=== PATIENT | female | born 1990 | race Caucasian/White ===

== ENCOUNTER → 2020-03-12 08:35 | Outpatient (BNVA) | payer MEDICAID, SELFPAY | PROVIDERS: Visit Provider Nurse Practitioner | DX: K21.9 Gastro-esophageal reflux disease without esophagitis (principal); A04.8 Other specified bacterial intestinal infections; K58.0 Irritable bowel syndrome with diarrhea | CPT/HCPCS: 99214 ==

== ENCOUNTER → 2020-04-29 10:27 | Outpatient (BNVA) | payer MEDICAID, SELFPAY | PROVIDERS: Visit Provider Nurse Practitioner | DX: Z76.89 Persons encountering health services in other specified circumstances (principal) ==

== ENCOUNTER → 2020-05-27 10:53 | Outpatient (BNVA) | payer MEDICAID, SELFPAY | PROVIDERS: PCP Nurse Practitioner Primary Care; Visit Provider Nurse Practitioner | DX: Z76.89 Persons encountering health services in other specified circumstances (principal) ==

== ENCOUNTER → 2020-09-02 10:44 | Outpatient (BNVA) | payer MEDICAID, SELFPAY | PROVIDERS: PCP Nurse Practitioner Primary Care; Visit Provider Nurse Practitioner ==

== ENCOUNTER 2021-03-10 11:04 | Outpatient (REF) | payer MEDICAID, SELFPAY ==
[2021-03-11 09:44] LABS: H Pylori Breath Test Negative (Negative)
== END 2021-03-10 11:05 | disposition home or self-care (01) ==
LOC: CF 11:04
PROVIDERS: Visit Provider Nurse Practitioner
DX: K21.9 Gastro-esophageal reflux disease without esophagitis (principal); K58.0 Irritable bowel syndrome with diarrhea; A04.8 Other specified bacterial intestinal infections; Z88.8 Allergy status to other drugs, medicaments and biological substances; Z88.6 Allergy status to analgesic agent
CPT/HCPCS: 36415; 83013; 99212

== ENCOUNTER 2022-02-28 08:08 | Emergency (ER) | payer MEDICAID, SELFPAY ==
--- NOTE | ~2022-02-28 | US_ITS ---
EXAMINATION: US PELVIS CLINICAL INFORMATION: Right pelvic/right lower quadrant pain. COMPARISON: CT scan of the abdomen and pelvis dated 11/10/2015. TECHNIQUE: Ultrasound of the pelvis is performed using both transabdominal and transvaginal transducers along with Doppler. Transvaginal imaging is performed due to inadequate visualization transabdominally. FINDINGS: Uterus: Anteverted/anteflexed on transabdominal images, but changed to retroverted on transvaginal images and measures 8.6 x 3.9 x 4.5 cm. Mild heterogeneity is seen in the myometrium. A small anechoic cyst is seen in the myometrium at the fundus measuring 0.5 x 0.3 x 0.5 cm. The endometrial stripe measures up to 1.5 cm. The endometrial stripe is mildly hypoechoic centrally at the level the fundus. Color Doppler showed no abnormal vascular flow. No free fluid in the cul-de-sac. Right ovary measures 3.7 x 3.2 x 2.4 cm. Volume of 14.9 mL. An anechoic follicles measure 1.0 cm and 1.3 cm. A probable small hemorrhagic follicle measures 1.8 cm. Doppler showed no abnormal vascular flow. Left ovary measures 2.9 x 2.6 x 2.0 cm. Volume of 7.9 mL. Several anechoic follicles measuring up to 0.9 cm. Trace adjacent anechoic fluid. Doppler showed no abnormal vascular flow. US/US pelvic and transvaginal IMPRESSION: 1. Retroverted/retroflexed uterus on transvaginal images correlates with previous CT findings. Mild myometrial heterogeneity without definitive fibroid. Hypoechoic component of the endometrial stripe could represent products of menstruation without other significant abnormality. If the patient experiences abnormal bleeding this could be monitored for change with a repeat transvaginal ultrasound and 3 months. 2. No significant adnexal abnormality.
--- NOTE | ~2022-02-28 | US_ITS ---
EXAMINATION: US PELVIS CLINICAL INFORMATION: Right pelvic/right lower quadrant pain. COMPARISON: CT scan of the abdomen and pelvis dated 11/10/2015. TECHNIQUE: Ultrasound of the pelvis is performed using both transabdominal and transvaginal transducers along with Doppler. Transvaginal imaging is performed due to inadequate visualization transabdominally. FINDINGS: Uterus: Anteverted/anteflexed on transabdominal images, but changed to retroverted on transvaginal images and measures 8.6 x 3.9 x 4.5 cm. Mild heterogeneity is seen in the myometrium. A small anechoic cyst is seen in the myometrium at the fundus measuring 0.5 x 0.3 x 0.5 cm. The endometrial stripe measures up to 1.5 cm. The endometrial stripe is mildly hypoechoic centrally at the level the fundus. Color Doppler showed no abnormal vascular flow. No free fluid in the cul-de-sac. Right ovary measures 3.7 x 3.2 x 2.4 cm. Volume of 14.9 mL. An anechoic follicles measure 1.0 cm and 1.3 cm. A probable small hemorrhagic follicle measures 1.8 cm. Doppler showed no abnormal vascular flow. Left ovary measures 2.9 x 2.6 x 2.0 cm. Volume of 7.9 mL. Several anechoic follicles measuring up to 0.9 cm. Trace adjacent anechoic fluid. Doppler showed no abnormal vascular flow. US/US pelvic ovarian doppler IMPRESSION: 1. Retroverted/retroflexed uterus on transvaginal images correlates with previous CT findings. Mild myometrial heterogeneity without definitive fibroid. Hypoechoic component of the endometrial stripe could represent products of menstruation without other significant abnormality. If the patient experiences abnormal bleeding this could be monitored for change with a repeat transvaginal ultrasound and 3 months. 2. No significant adnexal abnormality.
[2022-02-28 08:14] VITALS: BP 114/63; PULSE 83; RESP 18; TEMP 36.4; O2SAT 100; BMI 29.9
--- NOTE | 2022-02-28 08:42 | ED_ITS ---
HPI - Abdominal Pain General Chief Complaint: Abdominal Pain Stated Complaint: Pain in R side abd Time Seen by Provider: 02/28/22 08:42 Source: patient, family and old records reviewed Mode of arrival: ambulatory Limitations: no limitations History of Present Illness HPI narrative: 32 yo female with hx of IBS, GERD, anxiety depression and cyclical vomiting here with c/o 4 days of n/v and abdominal pain states this is typical of her cyclical vomiting bouts. At this time no change in medications. Zofran did not work. MD elicited complaint: abdominal pain (n/v) Pertinent past history: none Onset (ago): day(s) (4) Pain Consistency: constant Location: diffuse Severity: moderate Quality: stabbing Radiation: none Migration to: no migration Exacerbating factors: eating Relieving factors: nothing Context: history of similar episodes Associated symptoms: nausea and vomiting Treatments prior to arrival: other (zofran) Related Data Home Medications Medication Instructions Recorded Confirmed ferrous sulfate 325 mg (65 mg 325 mg PO DAILY 09/02/20 iron) tablet Previous Rx's Medication Instructions Recorded dicyclomine 20 mg tablet 20 mg PO QID 30 days #120 tabs 03/12/20 omeprazole 40 mg capsule,delayed 40 mg PO DAILY 30 days #30 caps 03/10/21 release Allergies Allergy/AdvReac Type Severity Reaction Status Date / Time promethazine [From PHENERGAN] Allergy Unknown RASH Verified 03/10/21 11:11 ENTIRE BODY tramadol [TRAMADOL] Allergy Unknown Rash Verified 03/10/21 11:11 Review of Systems Review of Systems Constitutional : No Weight loss, No Fever, No Chills ENT/Mouth : No sore throat, No Rhinorrhea Eyes: No Swelling, No Redness Cardiovascular : No Chest Pain, No SOB, No Edema Respiratory : No Cough, No Sputum, No Wheezing Gastrointestinal : Positive Nausea, Positive Vomiting, no Diarrhea, positive abdominal Pain, No Hematochezia, No Melena Genitourinary : No Dysuria, No Urinary Frequency, No Hematuria, No Urgency Musculoskeletal : No joint pain, No Myalgias, No Joint Swelling Skin : No Skin Lesions, No rash Neuro : No Weakness, No Numbness, No Dizziness, No Headache Psych : No Anxiety/Panic, No Depression Heme/Lymph: No Bruising, No Lymphadenopathy Endocrine : No Polyuria, No Polydipsia All other systems reviewed and are negative. [facility] [place] Past Medical History Attestation statement: The following information was validated with the patient. Medical History IBS (irritable bowel syndrome) Surgical History Hx of eye surgery Hx of tubal ligation Family History Family History Maternal Grandfather No problems noted. Maternal Grandmother Ulcer Family/Other Stomach cancer Breast cancer Mother Asthma Social History Social History (Updated 02/28/22 @ 08:49 by Yuliana Shaw DO) Household Members: Significant Other and Children Housing: Apartment Alcohol intake: current Alcohol intake frequency: does not drink Patient Tobacco Use Status: Never used Tobacco Physical Exam ED Vital Signs: Vital Signs - 24 hr 02/28/22 08:14 Temperature 97.6 F Pulse Rate 83 Respiratory Rate 18 Blood Pressure 114/63 Pulse Oximetry 100 Oxygen Delivery Method Room Air BMI result Body Mass Index 29.9 Appearance: Alert. Oriented X3. anxious, moving around on stretcher mild acute distress. Eyes: Pupils equal, round and reactive to light. ENT: Pharynx dry MM mild Neck: Normal inspection. Neck supple. CVS: Normal heart rate and rhythm. Pulses normal. Respiratory: No respiratory distress. Breath sounds normal. Abdomen: Soft and mild diffuse ttp no rebound or guarding Skin: Skin warm and dry. pale skin color. Normal skin turgor. Extremities: No lower extremity edema. No calf ttp Neuro: Oriented X 3. No motor deficit. No sensory deficit. MDM - Abdominal Pain MDM Narrative Medical decision making narrative: 32 yo female with hx of IBS, GERD, anxiety depression and cyclical vomiting here with c/o vomiting, diffuse abdominal pain - states this has happened to her before and is similar to prior bouts. At this time labs, drug screen for THC, IVF and IV meds ordered. No localized ttp to suggest GB or appendix pathology. Dispo per results and clinical improvement. Discharge Plan Discharge Prescriptions: No Action dicyclomine 20 mg tablet 20 mg PO QID 30 Days Qty: 120 1RF ferrous sulfate 325 mg (65 mg iron) tablet 325 mg PO DAILY omeprazole 40 mg capsule,delayed release(DR/EC) 40 mg PO DAILY 30 Days Qty: 30 6RF
[2022-02-28 08:51] VITALS: BP 121/75; PULSE 94; RESP 22; O2SAT 100
--- NOTE | 2022-02-28 09:07 | ED.ABDPAIN ---
HPI - Abdominal Pain General Chief Complaint: Abdominal Pain Stated Complaint: Pain in R side abd Time Seen by Provider: 02/28/22 08:42 Source: patient Mode of arrival: ambulatory Limitations: no limitations History of Present Illness HPI narrative: 32-year-old female with history of GERD, irritable bowel syndrome, H pylori in the past who presents to the ER for evaluation of acute onset of right lower quadrant pain and nausea that started this morning. She reports she woke up in her usual state of health and shortly thereafter developed 10/10 right lower quadrant cramping abdominal pain that she describes similar to a contraction. The pain has since subsided to about a 6/10. She is nauseous but has not vomited. Normal bowel movement yesterday. She cannot recall when her last menstrual cycle was. She denies any vaginal discharge or bleeding. MD elicited complaint: abdominal pain Pertinent past history: none Onset (ago): hour(s) Pain Consistency: other (improving) Location: RLQ Severity: severe Pain scale (0-10): 6 Quality: stabbing Radiation: none Migration to: no migration Exacerbating factors: nothing Relieving factors: nothing Associated symptoms: nausea Related Data Home Medications Medication Instructions Recorded Confirmed ferrous sulfate 325 mg (65 mg 325 mg PO DAILY 09/02/20 iron) tablet Previous Rx's Medication Instructions Recorded dicyclomine 20 mg tablet 20 mg PO QID 30 days #120 tabs 03/12/20 omeprazole 40 mg capsule,delayed 40 mg PO DAILY 30 days #30 caps 03/10/21 release Allergies Allergy/AdvReac Type Severity Reaction Status Date / Time promethazine [From PHENERGAN] Allergy Unknown RASH Verified 03/10/21 11:11 ENTIRE BODY tramadol [TRAMADOL] Allergy Unknown Rash Verified 03/10/21 11:11 Review of Systems Review of Systems Constitutional: No Fever, No Chills ENT/Mouth: No sore throat, No Rhinorrhea, No Swallowing Difficulty Cardiovascular: No Chest Pain, No SOB Respiratory: No Cough, No Sputum, No Wheezing, No dyspnea Gastrointestinal: + Nausea, No Vomiting, No Diarrhea, + abdominal Pain, No Hematochezia, No Melena Genitourinary: No Dysuria, No Urinary Frequency, No Hematuria, No vaginal discharge Musculoskeletal: No joint pain, No Myalgias Skin: No Skin Lesions, No rash Neuro: No Weakness, No Numbness, No Dizziness, No Headache Psych: No Anxiety/Panic, No Depression Heme/Lymph: No Bruising, No Lymphadenopathy PMFSH Past Medical History Medical History IBS (irritable bowel syndrome) Surgical History Hx of eye surgery Hx of tubal ligation Family History Family History Maternal Grandfather No problems noted. Maternal Grandmother Ulcer Family/Other Stomach cancer Breast cancer Mother Asthma Social History Social History (Updated 02/28/22 @ 08:49 by Yuliana Shaw DO) Household Members: Significant Other and Children Housing: Apartment Alcohol intake: current Alcohol intake frequency: does not drink Patient Tobacco Use Status: Never used Tobacco Advance Directives: No Advance Directives Information Provided: No Physical Exam ED Vital Signs: Vital Signs - 24 hr 02/28/22 08:14 02/28/22 08:51 Temperature 97.6 F Pulse Rate 83 94 Respiratory Rate 18 22 H Blood Pressure 114/63 121/75 Pulse Oximetry 100 100 Oxygen Delivery Method Room Air Room Air BMI result Body Mass Index 29.9 Appearance: Alert. Oriented X3. No acute distress. Eyes: Pupils equal, round and reactive to light. ENT: Pharynx normal. Neck: Normal inspection. Neck supple. CVS: Normal heart rate and rhythm. Pulses normal. Respiratory: No respiratory distress. Breath sounds normal. Abdomen: Soft, mild RLQ tenderness without guarding or rebound, normal +BS x4 Skin: Skin warm and dry. Normal skin color. Normal skin turgor. No rashes. Extremities: No lower extremity edema. Neuro: Oriented X 3. Grossly normal, nonfocal Course Course Course Narrative: 32 y/o female presents to the ER for evaluation of acute onset of right lower quadrant pain that started this morning. Currently 6/10 but appears well. She has mild lower quadrant tenderness on the right without rebound or guarding. Will need to rule out . Will also need to rule out ovarian torsion appendicitis. Labs and urinalysis pending. Reevaluation(s) Reevaluation #1: Labs are unremarkable. No leukocytosis. She is not . Will start with a pelvic ultrasound to rule out ovarian torsion and ovarian cyst. Pelvic is deferred per patient request. Will reassess. Reevaluation #2: Patient sleeping comfortably. When woken she states her pain resolved. Pelvic ultrasound is not showing any adnexal abnormalities, normal flow to the ovaries without any significant cyst. Minimal residual right lower quadrant tenderness. No vomiting. No fever. Low clinical suspicion for acute appendicitis. will hold off on CT scan of the abdomen for now. Patient has been counseled to return to the emergency department if she has worsening pain, development of fever vomiting. She agrees with plan. She will start Motrin and Tylenol for pain. Work note provided per request. Return precautions again discussed and patient expressed understanding. Stable for discharge home. MDM - Abdominal Pain Lab Data Result diagrams: 02/28/22 09:37 02/28/22 10:04 Labs: Lab Results 02/28/22 02/28/22 02/28/22 Range/Units 09:36 09:36 09:36 WBC (4.8-10.8) X10*3/uL RBC (4.20-5.50) X10*6/uL Hgb (12.0-16.0) g/dl Hct (37.0-47.0) % MCV (80.0-98.0) fL MCH (27.0-33.0) pg MCHC (31.0-35.0) g/dl RDW (11.0-16.0) % Plt Count (160-400) X10*3/uL MPV (9.4-12.3) fL Immature Gran % (Auto) (0.0-0.4) % Neut % (Auto) (45-73) % Lymph % (Auto) (20-40) % [place] % (Auto) (2-11) % Eos % (Auto) (0-4) % Baso % (Auto) (0-2) % Lymph # (Auto) (1.2-4.9) X10*3/uL [place] # (Auto) (0.1-1.2) X10*3/uL Eos # (Auto) (0.0-0.4) X10*3/uL Baso # (Auto) (0.0-0.2) X10*3/uL Abs Immat Gran (auto) (0.00-0.03) X10*3/uL Absolute Neuts (auto) (2.0-8.3) x10*3/uL Absolute Nucleated RBC (0.0-0.012) X10*3/uL Nucleated RBC % (auto) (0.0-0.2) /100WBC Sodium (135-145) mmol/L Potassium (3.3-5.1) mmol/L Chloride (96-108) mmol/L Carbon Dioxide (22-29) mmol/L Anion Gap (12-20) BUN (9-16) mg/dL Creatinine (0.5-1.4) mg/dL Estim Creat Clear Calc Estimated GFR Random Glucose (60-115) mg/dL Calcium (8.4-10.2) mg/dL Magnesium (1.6-2.6) mg/dL Total Bilirubin (0.0-1.0) mg/dL Direct Bilirubin (0.0-0.5) mg/dL AST (5-31) U/L ALT (0-31) U/L Alkaline Phosphatase (39-117) U/L Total Protein (6.5-8.0) g/dL Albumin (3.5-5.0) g/dL Lipase (8-78) U/L Beta HCG, Quant Cancelled Urine Color Urine Appearance Urine pH (5.0-9.0) Ur Specific [place] (1.005-1.025) Urine Protein (Neg-Trace) mg/dL Urine Glucose (UA) (Negative) mg/dL Urine Ketones (Negative) mg/dL Urine Blood (Negative) Urine Nitrite (Negative) Ur Leukocyte Esterase (Negative) Urine RBC (0-2) /HPF Urine WBC (0-5) /HPF Ur Squamous Epith Cells (0-2) /HPF Urine Bacteria (None Seen) Hyaline Casts (0-2) /LPF Urine Test NEGATIVE (NEGATIVE) COVID-19 (AJIT) Negative (Negative) COVID-19 Clin Com See Note 02/28/22 02/28/22 02/28/22 Range/Units 09:36 09:37 10:04 WBC 6.7 (4.8-10.8) X10*3/uL RBC 4.43 (4.20-5.50) X10*6/uL Hgb 11.8 L (12.0-16.0) g/dl Hct 36.8 L (37.0-47.0) % MCV 83.1 (80.0-98.0) fL MCH 26.6 L (27.0-33.0) pg MCHC 32.1 (31.0-35.0) g/dl RDW 12.9 (11.0-16.0) % Plt Count 295 (160-400) X10*3/uL MPV 10.7 (9.4-12.3) fL Immature Gran % (Auto) 0.2 (0.0-0.4) % Neut % (Auto) 62.2 (45-73) % Lymph % (Auto) 30.0 (20-40) % [place] % (Auto) 5.9 (2-11) % Eos % (Auto) 0.9 (0-4) % Baso % (Auto) 0.8 (0-2) % Lymph # (Auto) 2.0 (1.2-4.9) X10*3/uL [place] # (Auto) 0.4 (0.1-1.2) X10*3/uL Eos # (Auto) 0.1 (0.0-0.4) X10*3/uL Baso # (Auto) 0.1 (0.0-0.2) X10*3/uL Abs Immat Gran (auto) 0.01 (0.00-0.03) X10*3/uL Absolute Neuts (auto) 4.2 (2.0-8.3) x10*3/uL Absolute Nucleated RBC 0.000 (0.0-0.012) X10*3/uL Nucleated RBC % (auto) 0.0 (0.0-0.2) /100WBC Sodium 140 (135-145) mmol/L Potassium 4.2 (3.3-5.1) mmol/L Chloride 105 (96-108) mmol/L Carbon Dioxide 26 (22-29) mmol/L Anion Gap 13 (12-20) BUN 6 L (9-16) mg/dL Creatinine 0.79 (0.5-1.4) mg/dL Estim Creat Clear Calc 107.9 Estimated GFR > 60 Random Glucose 84 (60-115) mg/dL Calcium 9.1 (8.4-10.2) mg/dL Magnesium 2.0 (1.6-2.6) mg/dL Total Bilirubin 0.4 (0.0-1.0) mg/dL Direct Bilirubin 0.2 (0.0-0.5) mg/dL AST 13 (5-31) U/L ALT 12 (0-31) U/L Alkaline Phosphatase 58 (39-117) U/L Total Protein 6.8 (6.5-8.0) g/dL Albumin 3.8 (3.5-5.0) g/dL Lipase 30 (8-78) U/L Beta HCG, Quant < 2 Urine Color Yellow Urine Appearance Clear Urine pH 6.0 (5.0-9.0) Ur Specific [place] 1.015 (1.005-1.025) Urine Protein Negative (Neg-Trace) mg/dL Urine Glucose (UA) Negative (Negative) mg/dL Urine Ketones Negative (Negative) mg/dL Urine Blood Negative (Negative) Urine Nitrite Negative (Negative) Ur Leukocyte Esterase Small (1+) H (Negative) Urine RBC 0-2 (0-2) /HPF Urine WBC 6-10 H (0-5) /HPF Ur Squamous Epith Cells 6-10 (0-2) /HPF Urine Bacteria 4+ (None Seen) Hyaline Casts 0-2 (0-2) /LPF Urine Test (NEGATIVE) COVID-19 (AJIT) (Negative) COVID-19 Clin Com Critical Care Time Critical Care Time Critical Care Time: No Discharge Plan Discharge Clinical Impression: Abdominal pain Patient Disposition: Home, Self-Care Instructions: Abdominal Pain (ED) Additional Instructions: Your lab workup today was unremarkable. Your ultrasound did not show any abnormalities of your ovaries. Recommend Motrin and Tylenol as needed for pain If you have new or worsening pain, vomiting or any other concerning symptom call 911 or come back to the ER for further evaluation. Prescriptions: No Action dicyclomine 20 mg tablet 20 mg PO QID 30 Days Qty: 120 1RF ferrous sulfate 325 mg (65 mg iron) tablet 325 mg PO DAILY omeprazole 40 mg capsule,delayed release(DR/EC) 40 mg PO DAILY 30 Days Qty: 30 6RF Referrals: Naa Mast [employer]PERATOR [Primary Care Provider] - Stand Alone Forms: Work/School Release Interventions: ED Discharge Assessment Last Done: 02/28/22 13:47
[2022-02-28 09:46] LABS: MANUAL DIFF FLAG NO
[2022-02-28 09:48] LABS: Basophils Absolute Auto 0.1 X10*3/uL (0.0-0.2); Basophils Percent Auto 0.8 % (0-2); Eosinophils Absolute Auto 0.1 X10*3/uL (0.0-0.4); Eosinophils Percent Auto 0.9 % (0-4); Hematocrit 36.8 % (37.0-47.0); Hemoglobin 11.8 g/dl (12.0-16.0); Imm Gran Abs Auto 0.01 X10*3/uL (0.00-0.03); Imm Gran Pct Auto 0.2 % (0.0-0.4); Mean Corpuscular HGB Conc 32.1 g/dl (31.0-35.0); Mean Corpuscular Hemoglobin 26.6 pg (27.0-33.0); Mean Corpuscular Volume 83.1 fL (80.0-98.0); Mean Platelet Volume 10.7 fL (9.4-12.3); Monocytes Absolute Auto 0.4 X10*3/uL (0.1-1.2); Monocytes Percent Auto 5.9 % (2-11); Neutrophils Absolute Auto 4.2 x10*3/uL (2.0-8.3); Neutrophils Percent Auto 62.2 % (45-73); Platelet Count 295 X10*3/uL (160-400); Red Blood Count 4.43 X10*6/uL (4.20-5.50); Red Cell Distribution Width 12.9 % (11.0-16.0); White Blood Count 6.7 X10*3/uL (4.8-10.8)
[2022-02-28 09:50] LABS: Appearance Urine Clear; Color Urine Yellow; Glucose Urine UA Negative (Negative); Leukocyte Esterase Urine Small (1+) (Negative); Nitrite Urine Negative (Negative); Specific Gravity - Urine 1.015 (1.005-1.025); UMIC TRIGGER UACC YES; Urine Blood Negative (Negative); Urine Ketones Negative (Negative); Urine Protein Negative (Neg-Trace)
[2022-02-28 09:53] LABS: UPreg QC Valid YES; Urine Pregnancy NEGATIVE (NEGATIVE)
--- NOTE | 2022-02-28 09:53 | PC.NURSE ---
20 ga iv inserted L ac on 1 attempt.
[2022-02-28 09:59] LABS: Bacteria Urine 4+ (None Seen); Hyaline Casts Urine 0-2 /LPF (0-2); RBC Urine 0-2 /HPF (0-2); UACC Culture Trigger YES
[2022-02-28 10:07] LABS: COVID-19 Test Negative (Negative); IDNOW Serial# 55D5AD1C
--- NOTE | 2022-02-28 10:19 | PC.NURSE ---
PT states right abd pain and nausea started this AM. Rates constant pain 6/10. Positive bowel sounds in all quadrants. States more tender to the right side on palpation.
[2022-02-28 10:38] LABS: Alanine Aminotransferase 12 U/L (0-31); Albumin Level 3.8 g/dL (3.5-5.0); Alkaline Phosphatase 58 U/L (39-117); Anion Gap 13 (12-20); Aspartate Amino Transferase 13 U/L (5-31); Bilirubin Direct 0.2 mg/dL (0.0-0.5); Bilirubin Total 0.4 mg/dL (0.0-1.0); Blood Urea Nitrogen 6 mg/dL (9-16); Calcium 9.1 mg/dL (8.4-10.2); Carbon Dioxide 26 mmol/L (22-29); Chloride 105 mmol/L (96-108); Creatinine Clr Calc Pharmacy 107.9; Estimated Glomerular Filt Rate > 60; Glucose Random 84 mg/dL (60-115); Lipase 30 U/L (8-78); Potassium 4.2 mmol/L (3.3-5.1); Sodium 140 mmol/L (135-145); Total Protein 6.8 g/dL (6.5-8.0)
[2022-02-28 10:44] LABS: HCG Quantitative < 2 mIU/mL
== END 2022-02-28 13:47 | disposition home or self-care (01) ==
PROVIDERS: Physician Assistant; Emergency Provider Emergency Medicine; PCP Nurse Practitioner Primary Care
DX: R10.31 Right lower quadrant pain (principal); R10.2 Pelvic and perineal pain; Z20.822 Contact with and (suspected) exposure to COVID-19; Z79.899 Other long term (current) drug therapy
CPT/HCPCS: 36415; 76830; 76856; 80048; 80076; 81001; 81025; 83690; 83735; 84702; 85025; 87086; 87088; 87186; 87635; 93975; 99284

== ENCOUNTER 2022-11-24 18:59 | Emergency (ER) | payer MEDICAID, SELFPAY ==
[2022-11-24 19:13] VITALS: BP 119/64; PULSE 88; RESP 18; TEMP 36.1; O2SAT 95; BMI 31.9
--- NOTE | 2022-11-24 19:13 | ED_ITS ---
HPI - General Adult General Chief complaint: General Medical Stated complaint: pain in neck/ swollen arm from covid vaccine Time Seen by Provider: 11/24/22 21:44 Source: patient Mode of arrival: ambulatory Limitations: no limitations History of Present Illness HPI narrative: Patient comes in the emergency room complaining of side effects after getting her 3rd COVID shot. Patient states that she has localized arm pain on the left upper arm. Also, patient complaining of sore throat, patient states that all her teeth hurt that started after getting COVID shot. Related Data Home Medications Medication Instructions Recorded Confirmed ferrous sulfate 325 mg (65 mg 325 mg PO DAILY 09/02/20 iron) tablet Previous Rx's Medication Instructions Recorded dicyclomine 20 mg tablet 20 mg PO QID 30 days #120 tabs 03/12/20 omeprazole 40 mg capsule,delayed 40 mg PO DAILY 30 days #30 caps 03/10/21 release cefuroxime axetil 250 mg tablet 250 mg PO Q12H 7 days #14 tabs 03/05/22 Allergies Allergy/AdvReac Type Severity Reaction Status Date / Time promethazine [From PHENERGAN] Allergy Unknown RASH Verified 03/10/21 11:11 ENTIRE BODY tramadol [TRAMADOL] Allergy Unknown Rash Verified 03/10/21 11:11 Review of Systems Review of Systems: Constitutional : No Weight loss, No Fever, No Chills, No Night Sweats, No Fatigue, No Malaise ENT/Mouth : No Hearing loss, No Ear Pain, No Nasal Congestion, No Sinus Pain, No Hoarseness, complaining of sore throat, No Rhinorrhea, No Swallowing Difficulty Eyes: No Eye Pain, No Swelling, No Redness, No Foreign Body, No Discharge, No Vision Changes Cardiovascular : No Chest Pain, No SOB, No Dyspnea on Exertion, No Orthopnea, No Edema, No Palpitations Respiratory : No Cough, No Sputum, No Wheezing, No Smoke Exposure, No Dyspnea Gastrointestinal : No Nausea, No Vomiting, No Diarrhea, No Constipation, No abdominal Pain, No Hematochezia, No Melena Genitourinary : no irregular bleeding, No Dysuria, No Urinary Frequency, No Hematuria, No Urinary Incontinence, No Urgency, No Flank Pain, No Urinary Flow Changes, No Hesitancy Musculoskeletal : Complaining of localized arm pain at the injection site, No joint pain, No Myalgias, No Joint Swelling Skin : No Skin Lesions, No rash Neuro : No Weakness, No Numbness, No Paresthesias, No Loss of Consciousness, No Dizziness, No Headache Psych : No Anxiety/Panic, No Depression, No SI/HI/AH/VH, No Social Issues, Heme/Lymph: No Bruising, No Bleeding,No Lymphadenopathy Endocrine : No Polyuria, No Polydipsia, No Temperature Intolerance PMFSH Past Medical History Medical History IBS (irritable bowel syndrome) Surgical History Hx of eye surgery Hx of tubal ligation Family History Family History Maternal Grandfather No problems noted. Maternal Grandmother Ulcer Family/Other Stomach cancer Breast cancer Mother Asthma Social History Social History (Updated 02/28/22 @ 08:49 by Yuliana Shaw DO) Household Members: Significant Other and Children Housing: Apartment Alcohol intake: current Alcohol intake frequency: does not drink Patient Tobacco Use Status: Never used Tobacco Advance Directives: No Advance Directives Information Provided: No Physical Exam ED Vital Signs: Vital Signs - 24 hr 11/24/22 19:13 Temperature 97 F Pulse Rate 88 Respiratory Rate 18 Blood Pressure 119/64 Pulse Oximetry 95 Oxygen Delivery Method Room Air BMI result Body Mass Index 31.9 Const Other: Appearance: Alert. Oriented X3. No acute distress. Eyes: Pupils equal, round and reactive to light. ENT: Pharynx normal. Normal oropharynx, normal gingiva Neck: Normal inspection. Neck supple. No lymph nodes noted. No crepitus CVS: Normal heart rate and rhythm. Pulses normal. Normal S1 and S2 Respiratory: No respiratory distress. Breath sounds normal. No Wheezing. No rales Abdomen: Soft and nontender. No rigidity. No distention. Skin: Skin warm and dry. Normal skin color. Normal skin turgor. The skin over the arm is normal, Extremities: No lower extremity edema. No Lacerations. No Rash. There is no extremity swelling the urine at the injection site Neuro: Oriented X 3. No motor deficit. No sensory deficit. Moving all extremities. No slurred speech. CN 2 through 12 grossly intact Psych: calm, cooperative, normal affect Course Course Course Narrative: This is an RME: Additional HPI, ROS, PE not included below will be deferred to primary provider.32 yo f presents w/ sore throat, neck pain, cough, swollen glands s/p covid vaccine which she got sunday. Also compaling of lower abd pain. Plan- viral test Medications Administered Discontinued Medications Generic Name Dose Route Start Last Admin Trade Name Berta PRN Reason Stop Dose Admin Ketorolac Tromethamine 30 mg 11/24/22 19:13 11/24/22 20:05 Ketorolac Tromethamine 15 Mg/Ml Vial IM 11/24/22 19:14 30 mg ONCE ONE Administration Medical Decision Making Medical Decision Making [facility] Narrative: -patient is is negative for COVID, negative for influenza. -I discussed with the patient that she has side effects from the medication, not an allergic reaction. Patient can alternate taking Tylenol now present. Patient declined a prescription, states she has those at home. Differential Diagnosis Differential Diagnoses: The differential diagnosis associated with the presentation includes (Immunization side effect, COVID, influenza, viral illness.) Lab Data [facility] Lab Attestation statement: I reviewed the patient's lab results. (Serology negative) Labs: Lab Results 11/24/22 11/24/22 Range/Units 19:28 19:28 COVID-19 (AJIT) Negative (Negative) COVID-19 Clin Com See Note Influenza Type A (LIANET) Negative (Negative) Influenza Type B (LIANET) Negative (Negative) Influenza A & B Note See Note Discharge Plan Discharge Clinical Impression: Side effect of medication Patient Disposition: Home, Self-Care Additional Instructions: Please follow-up with your primary care physician tomorrow. If you have any worsening or new symptoms, please return to the emergency room or call 911 Prescriptions: No Action cefuroxime axetil 250 mg tablet 250 mg PO Q12H 7 Days Qty: 14 0RF dicyclomine 20 mg tablet 20 mg PO QID 30 Days Qty: 120 1RF ferrous sulfate 325 mg (65 mg iron) tablet 325 mg PO DAILY omeprazole 40 mg capsule,delayed release(DR/EC) 40 mg PO DAILY 30 Days Qty: 30 6RF
[2022-11-24 19:46] LABS: COVID-19 Test Negative (Negative); IDNOW Serial# BCCEAD1C
[2022-11-24 19:49] LABS: IDNOW Serial# 08D9AD1C; Influenza A Negative (Negative); Influenza B2 Negative (Negative)
[2022-11-24] MEDS: Ketorolac Tromethamine 15 MG/ML VIAL 30 MG IM (20:05)
== END 2022-11-24 22:17 | disposition home or self-care (01) ==
PROVIDERS: Physician Assistant; Emergency Provider Emergency Medicine; PCP Nurse Practitioner Primary Care
DX: M79.622 Pain in left upper arm (principal); J02.9 Acute pharyngitis, unspecified; T50.B95A Adverse effect of other viral vaccines, initial encounter; Y92.9 Unspecified place or not applicable; Z20.822 Contact with and (suspected) exposure to COVID-19
CPT/HCPCS: 87502; 87635; 96372; 99283; 99284; J1885

== ENCOUNTER 2022-12-17 07:18 | Emergency (ER) | payer MEDICAID, SELFPAY ==
--- NOTE | ~2022-12-17 | XR_ITS ---
EXAMINATION: CR ANKLE, RIGHT CLINICAL INFORMATION: Rolled right ankle. COMPARISON: None available. TECHNIQUE: AP, lateral, and mortise views of the right ankle. FINDINGS: Lateral malleolar soft tissue swelling. Small ankle joint effusion. No acute fracture or dislocation or radiopaque foreign body. Ankle mortise symmetric and intact. Small plantar calcaneal spur. XR/XR ankle RT 2V IMPRESSION: Lateral malleolar soft tissue swelling and small ankle joint effusion. No acute fracture or dislocation.
[2022-12-17 07:24] VITALS: BP 100/54; PULSE 73; RESP 18; TEMP 36.4; O2SAT 100; BMI 33.7
[2022-12-17] MEDS: predniSONE 20 MG TABLET 60 MG PO (09:34)
[2022-12-17] MEDS: Ibuprofen 800 MG TABLET PO (09:34)
--- NOTE | 2022-12-17 09:35 | ED_ITS ---
HPI - General Adult General Chief complaint: Extremity Injury, Lower Stated complaint: Right ankle injury Time Seen by Provider: 12/17/22 09:16 Source: patient Mode of arrival: ambulatory Limitations: no limitations History of Present Illness HPI narrative: 32-year-old female presents to ED for right ankle pain. Patient states she was walking heels yesterday and she rolled her ankle in heels. Patient states her foot got caught in a crack in the sidewalk. Patient denies falling to the ground or hitting head. Patient's is trouble walking on right ankle due to pain. Patient denies any other complaints. Related Data Home Medications Medication Instructions Recorded Confirmed ferrous sulfate 325 mg (65 mg 325 mg PO DAILY 09/02/20 iron) tablet Previous Rx's Medication Instructions Recorded dicyclomine 20 mg tablet 20 mg PO QID 30 days #120 tabs 03/12/20 omeprazole 40 mg capsule,delayed 40 mg PO DAILY 30 days #30 caps 03/10/21 release cefuroxime axetil 250 mg tablet 250 mg PO Q12H 7 days #14 tabs 03/05/22 naproxen 500 mg tablet 500 mg PO BID PRN pain 7 days #14 12/17/22 tabs prednisone 20 mg tablet 40 mg PO DAILY 5 days #10 tabs 12/17/22 Allergies Allergy/AdvReac Type Severity Reaction Status Date / Time promethazine [From PHENERGAN] Allergy Unknown RASH Verified 12/17/22 07:23 ENTIRE BODY tramadol [TRAMADOL] Allergy Unknown Rash Verified 12/17/22 07:23 Review of Systems Review of Systems: Right ankle pain Yes all other systems are reviewed and are negative [facility] Past Medical History Medical History IBS (irritable bowel syndrome) Surgical History Hx of eye surgery Hx of tubal ligation Family History Family History Maternal Grandfather No problems noted. Maternal Grandmother Ulcer Family/Other Stomach cancer Breast cancer Mother Asthma Social History Social History (Updated 02/28/22 @ 08:49 by Yuliana Shaw DO) Household Members: Significant Other and Children Housing: Apartment Alcohol intake: never Patient Tobacco Use Status: Never used Tobacco Smoked in Last 30 Days: No Use of substances other than those prescribed or required for medical reasons: No Advance Directives: No Advance Directives Information Provided: Yes Physical Exam ED Vital Signs: Vital Signs - 24 hr 12/17/22 07:24 12/17/22 10:16 Temperature 97.6 F Pulse Rate 73 61 Respiratory Rate 18 15 Blood Pressure 100/54 L 102/66 Pulse Oximetry 100 100 Oxygen Delivery Method Room Air Room Air BMI result Body Mass Index 33.7 Const General: cooperative, healthy appearing, comfortable, no acute distress, well developed, alert, awake and Physically active Orientation/consciousness: oriented to person, oriented to place, oriented to time and patient oriented x3 HENWY Head: Yes normal to inspection, Yes No palpable skull fracture present, Yes normocephalic, Yes atraumatic and No abrasion Ears: hearing grossly normal bilaterally, external ears normal, TM's normal bilaterally, TM normal on the right, TM normal on the left, EAC's normal, mastoids normal and no periauricular adenopathy Eyes General: appearance normal, both eyes and all related structures Neck Neck: Yes normal visual inspection, Yes full ROM, Yes no lymphadenopathy, Yes no meningeal signs, Yes trachea midline, Yes supple, No anterior neck swelling and No tender Chest Chest palpation & inspection: normal inspection of the chest and normal palpation of entire chest wall Resp Effort & Inspection: normal respiratory effort and able to speak in complete sentences Auscultation: clear to auscultation bilaterally Cardio Jugular venous distension: no JVD Heart sounds: S1 normal heart sound present and S2 normal heart sound present GI Inspection: Yes normal to inspection and No abdominal wall ecchymosis Palpation (GI): Soft to palpation, not firm, nontender, no guarding and not rig id General: No CVA tenderness and Yes no CVA tenderness Back/Spine/Pelvis Back: no CVA tenderness, No CVA tenderness and No back tenderness Skin General skin exam: no rashes or lesions noted and elasticity normal Neuro General: oriented to person, oriented to place, oriented to time, patient oriented x3, gait normal, tone normal, moves all extremities, Normal light touch and pain sensation, no meningeal signs, no focal motor deficits, CN's II-XI intact bilaterally and normal sensation to monofilament Extrem General: Yes normal to inspection and Yes full ROM Ankle/foot/toe images: 1. Positive for slight ecchymosis and swelling on palpation with tenderness. Negative for crepitus or obvious deformity. Motor/ nose/vascular exam of whole extremity intact. Negative for erythema. Negative for any calf pain, red streaks, coolness, or hotness. Achilles tendon intact Psych Appearance: grossly normal, well kempt and not disheveled Medications Administered Discontinued Medications Generic Name Dose Route Start Last Admin Trade Name Berta PRN Reason Stop Dose Admin Ibuprofen 800 mg 12/17/22 09:23 12/17/22 09:34 Ibuprofen 800 Mg Tablet PO 12/17/22 09:24 800 mg ONCE ONE Administration Prednisone 60 mg 12/17/22 09:23 12/17/22 09:34 Prednisone 20 Mg Tablet PO 12/17/22 09:24 60 mg ONCE ONE Administration Medical Decision Making Medical Decision Making MDM Narrative: 32 year female presents to the ED for right ankle pain yesterday due to twisted ankle. Patient denies any blunt trauma or fall to the head or any other complaints. X-ray shows small joint effusion and ankle. Patient informed most likely these indicate possible tear in ligament or tendon in ankle and she will need to follow up with primary care provider for MRI. Patient placed in crutche s and Beau wrap. Patient discharged with pain meds. Differential Diagnosis Differential Diagnoses: The differential diagnosis associated with the presentation includes ( Ankle fracture, ankle dislocation, Achilles tendon rupture, osteomyelitis, septic joint,) Admission/Observation Consideration of admission/observation: Escalation of care including admission/observation considered Independent Interpretation I performed an independent interpretation of an: Plain X-Ray Radiology Impression Discussion of test interpretation with radiology: I have reviewed the radiologist's reading. Independent Historian Clinical information obtained from an independent historian. History obtained from or confirmed by: Spouse Prescription Management I considered prescription management with: Pain Medication and Other (Steroids) Discharge Plan Discharge Clinical Impression: Ankle sprain and strain Patient Disposition: Home, Self-Care Instructions: Ankle Sprain (DC), Crutch Instructions (ED), How to Use an Elastic Bandage (ED), R.I.C.E. Treatment (ED), Cold Compress or Soak (ED) Additional Instructions: you will need follow-up with primary care provider for MRI to rule out ligament/tendon tear in your ankle. X-ray showed small joint effusion in the ankle. Return to the ED for any increased swelling, leg swelling, calf pain, coughing up blood, redness, blue black discoloration, fever, chills, hardness, coldness, or any other concerning symptoms. Prescriptions: New prednisone 20 mg tablet 40 mg PO DAILY 5 Days Qty: 10 0RF naproxen 500 mg tablet 500 mg PO BID PRN (Reason: pain) 7 Days Qty: 14 0RF No Action cefuroxime axetil 250 mg tablet 250 mg PO Q12H 7 Days Qty: 14 0RF dicyclomine 20 mg tablet 20 mg PO QID 30 Days Qty: 120 1RF ferrous sulfate 325 mg (65 mg iron) tablet 325 mg PO DAILY omeprazole 40 mg capsule,delayed release(DR/EC) 40 mg PO DAILY 30 Days Qty: 30 6RF Stand Alone Forms: Work/School Release Interventions: ED Discharge Assessment Last Done: 12/17/22 10:16 Discharge Date/Time: 12/17/22 10:16 Print Language: Lao
--- NOTE | 2022-12-17 09:46 | PC.NURSE ---
Patient given crutches and given teaching how to use them. Patient verbalizes an understanding and demonstrated that she is able to ambulate with crutches.
[2022-12-17 10:16] VITALS: BP 102/66; PULSE 61; RESP 15; O2SAT 100
== END 2022-12-17 10:16 | disposition home or self-care (01) ==
PROVIDERS: Emergency Provider Emergency Medicine Emergency Medical Services
DX: S93.401A Sprain of unspecified ligament of right ankle, initial encounter (principal); S96.911A Strain of unspecified muscle and tendon at ankle and foot level, right foot, initial encounter; X50.1XXA Overexertion from prolonged static or awkward postures, initial encounter; Y93.01 Activity, walking, marching and hiking; Y92.480 Sidewalk as the place of occurrence of the external cause; Y99.9 Unspecified external cause status
CPT/HCPCS: 73600; 99283; 99284

== ENCOUNTER 2022-12-22 16:28 | Outpatient (REF) | payer MEDICAID, SELFPAY ==
[2022-12-23 14:53] LABS: CT PCR NOT DETECTED (Not Detect.); NG PCR NOT DETECTED (Not Detect.)
[2022-12-25 04:01] LABS: Syphilis Screen Nonreactive (Nonreactive)
[2022-12-25 04:21] LABS: ~HepC Num1 0.13 S/CO (0.00-0.79); ~Hepatitis C Antibody Nonreactive (Nonreactive)
[2022-12-25 04:23] LABS: HIV AB/AG Nonreactive (Nonreactive); HIV Num 1 0.07 S/CO (0.00-0.99)
== END 2022-12-22 16:29 | disposition home or self-care (01) ==
LOC: HO.HHCL 16:28
PROVIDERS: Visit Provider Nurse Practitioner Primary Care
DX: Z11.3 Encounter for screening for infections with a predominantly sexual mode of transmission (principal)
CPT/HCPCS: 0353U; 36415; 86780; 86803; 87389; 87661

== ENCOUNTER 2023-03-30 09:00 | Outpatient (RCR) | payer MEDICAID, SELFPAY | END 2023-04-09 13:17 | disposition home or self-care (01) | LOC: HO.PT 09:00 | PROVIDERS: PCP Nurse Practitioner Primary Care; Visit Provider Nurse Practitioner Primary Care | DX: M25.471 Effusion, right ankle (principal); M25.571 Pain in right ankle and joints of right foot | CPT/HCPCS: 97110; 97140; 97161; 97530 ==

== ENCOUNTER 2024-01-25 17:06 | Emergency (ER) | payer MEDICAID, SELFPAY ==
--- NOTE | ~2024-01-25 | XR_ITS ---
EXAMINATION: XR CERVICAL SPINE CLINICAL INFORMATION: Right-sided neck pain. COMPARISON: None available. TECHNIQUE: 3 views of the cervical spine were obtained. FINDINGS: There is straightening of the cervical lordosis. The vertebral bodies demonstrate preserved stature. Intervertebral disc space heights are preserved. There are small anterior osteophytes arising from the superior and inferior endplates of the C6 vertebral body. The C1-C2 relationship is anatomic. The dens is intact. Prevertebral soft tissue is normal in appearance. Paraspinal soft tissue is normal in appearance. Lung apices are clear. XR/XR cervical spine 3V IMPRESSION: No acute osseous cervical spine abnormality. Electronically signed by: Wang Moreland DO 01/25/2024 07:51 PM EDT
[2024-01-25 17:35] VITALS: BP 117/69; PULSE 85; RESP 16; TEMP 36.6; O2SAT 100; BMI 34.9
--- NOTE | 2024-01-25 17:36 | ED.GENADULT ---
HPI - General Adult General Chief complaint: Back Pain/Injury Stated complaint: R shoulder/back pain Time Seen by Provider: 01/25/24 19:44 Source: patient Mode of arrival: ambulatory Limitations: no limitations History of Present Illness ED Provider: ARNOLDO RAJAN PA-C HPI narrative: 33 year old female with pmhx significant for IBS-D and GERD presents to the ED today for evaluation of right sided neck pain which began [facility] in ED. Patient reports that while carrying heavy groceries to her car she began to have right sided neck pain. Reports pain exacerbation with head movements and certain positional changes. She did not take any OTC pain medications [facility]. Denies trauma to the neck. Denies headache, dizziness, vision changes, chest pain, jaw pain. Related Data Home Medications ?Medication ?Instructions ?Recorded ?Confirmed ferrous sulfate 325 mg (65 mg 325 mg PO DAILY 09/02/20 iron) tablet Previous Rx's ?Medication ?Instructions ?Recorded dicyclomine 20 mg tablet 20 mg PO QID 30 days #120 tabs 03/12/20 omeprazole 40 mg capsule,delayed 40 mg PO DAILY 30 days #30 caps 03/10/21 release cefuroxime axetil 250 mg tablet 250 mg PO Q12H 7 days #14 tabs 03/05/22 naproxen 500 mg tablet 500 mg PO BID PRN pain 7 days #14 12/17/22 tabs prednisone 20 mg tablet 40 mg (2 x 20 mg) PO DAILY 5 days 12/17/22 #10 tabs cyclobenzaprine 5 mg tablet 5 mg PO Q8H #7 tabs 01/25/24 lidocaine 5 % topical patch 1 patch topical DAILY #15 ea 01/25/24 (Lidoderm) Allergies Allergy/AdvReac Type Severity Reaction Status Date / Time promethazine [From PHENERGAN] Allergy Unknown RASH Verified 01/25/24 17:39 ENTIRE BODY tramadol [TRAMADOL] Allergy Unknown Rash Verified 01/25/24 17:39 Review of Systems Review of Systems: Constitutional: No fever, chills, fatigue, night sweats, weight changes ENT/Mouth: No ear pain, hearing loss, nasal congestion, sinus pain, rhinorrhea, sore throat Eyes: No eye pain, swelling, redness, vision changes, discharge Cardio: No chest pain, palpitations, BOCANEGRA, orthopnea, peripheral edema Pulm: No SOB, cough, sputum, wheezing, dyspnea, hemoptysis GI: No nausea, vomiting, hematemesis, abdominal pain, diarrhea, constipation, hematochezia, melena : No irregular bleeding, dysuria, frequency, urgency, hesitancy, hematuria, flank pain, urinary flow changes, urinary incontinence or retention MSK: No back pain, joint pain, myalgias, +neck pain Skin: No lesions, rashes Neuro: No weakness, numbness, paresthesias, LOC, dizziness, headache Psych: No anxiety/panic, depression, SI/HI, AH/VH All other systems reviewed and are negative. [facility] Past Medical History Attestation statement: The following information was validated with the patient. Source: old records reviewed and nursing notes reviewed Medical History IBS (irritable bowel syndrome) Surgical History Hx of eye surgery Hx of tubal ligation Family History Family History Maternal Grandfather No problems noted. Maternal Grandmother Ulcer Family/Other Stomach cancer Breast cancer Mother Asthma Social History Social History Household Members: Significant Other and Children Housing: Apartment Alcohol intake: never Patient Tobacco Use Status: Never used Tobacco Advance Directives: No Advance Directives Information Provided: No Physical Exam ED Vital Signs: Vital Signs - 24 hr 01/25/24 17:35 01/25/24 19:56 Temperature 98 F Pulse Rate 85 78 Respiratory Rate 16 20 Blood Pressure 117/69 103/63 Pulse Oximetry 100 100 Oxygen Delivery Method Room Air Room Air BMI result Body Mass Index 34.9 Vital signs stable General: Well appearing, in no acute distress. Skin: Warm, dry, intact. No rashes or lesions. Head: Normocephalic, atraumatic. EENT: Hearing is intact b/l. Conjunctiva clear. Sclera is anicteric. PERRLA. EOM intact. Moist mucous membranes.? Neck: Supple without LAD. FROM. Trachea midline. + noted torticollis to right. ttp over right cervical paraspinal mm extending over right trap. no midline spinous tenderness or step off deformity Cardiac: Chest wall symmetric. RRR. No MRG. No JVD. Lungs: Normal respiratory effort without accessory muscle use. CTA bilaterally. No rales, rhonchi, or wheezes.? Back: No midline spinous or paraspinal tenderness. No step off deformity. Ext: Upper and lower extremities atraumatic, without tenderness, deformity, swelling or erythema. Full ROM throughout. Strength 5/5 throughout. Pulses 2+ equal and bilateral. Neuro: AOx3. Normal speech. CN 2-12 grossly intact. Strength 5/5 intact throughout. No saddle anesthesia. Sensation intact to light touch. NV intact distally. Reflexes 2+ bilaterally. Ambulating with steady gait. Psych: Appropriate mood and affect. Responds appropriately to questions. Course Course Course Narrative: This is a Rapid Medical Examination (RME) performed by Mary Anne Rajan PA-C in triage. Full HPI, ROS, assessment and treatment plan per primary provider in the Main ED. 33 yo female here for eval of right neck/shoulder pain which began while carrying heavy groceries out to her car earlier today. reports pain worse w/ movement of head and specific positional changes. no numbness/tinglign/weakness down extremity. no trauma. Plan: xr Reevaluation(s) Reevaluation #1: 6607-- X-ray cervical spine without fracture subluxation. Patient medicated with Valium, Toradol and lidocaine patch in the ED with improvement in symptoms. She is now able to fully rotate C-spine to right. Patient has remained stable throughout ED visit today. Discussed worrisome signs and symptoms and when to return to the ED. All questions answered at this time. Patient is agreeable with disposition and stable for discharge. Medications Administered Discontinued Medications Generic Name Dose Route Start Last Admin Trade Name Freq PRN Reason Stop Dose Admin Diazepam 5 mg 01/25/24 19:46 01/25/24 20:01 Diazepam 5 Mg Tablet PO 01/25/24 19:47 5 mg ONCE ONE Administration Ketorolac Tromethamine 30 mg 01/25/24 19:56 01/25/24 20:04 Ketorolac Tromethamine 30 Mg/Ml Vial IM 01/25/24 19:57 30 mg ONCE ONE Administration Lidocaine 1 patch 01/25/24 19:47 01/25/24 20:02 Lidocaine 4 % Patch Adh..Patch TRANSDERMA 01/25/24 19:48 1 patch ONCE ONE Administration Protocol Medical Decision Making Medical Decision Making [facility] Narrative: 33 year old female with pmhx significant for IBS-D and GERD presents to the ED today for evaluation of right sided neck pain which began [facility] in ED. vitals are stable. She is nontoxic-appearing and in no acute distress. On exam, noted torticollis to right. ttp over right cervical paraspinal mm extending over right trap. no midline spinous tenderness or step off deformity. ambulating with steady gait. nv intact distally. Differential diagnosis includes MSK sprain/strain. Lower suspicion for fracture or cervical radiculopathy. Unlikely acute dissection, ACS or arrhythmia. Plan for imaging, pain control and re-evaluation. Differential Diagnosis Differential Diagnoses: The differential diagnosis associated with the presentation includes As above Admission/Observation Not indicated Independent Interpretation I performed an independent interpretation of an: Plain X-Ray Interpretation: X-ray cervical spine without fracture subluxation, agree with radiologist's interpretation. Radiology Impression Discussion of test interpretation with radiology: I have reviewed the radiologist's reading. Radiologist Impression: EXAMINATION: XR CERVICAL SPINE CLINICAL INFORMATION: Right-sided neck pain. COMPARISON: None available. TECHNIQUE: 3 views of the cervical spine were obtained. FINDINGS: There is straightening of the cervical lordosis. The vertebral bodies demonstrate preserved stature. Intervertebral disc space heights are preserved. There are small anterior osteophytes arising from the superior and inferior endplates of the C6 vertebral body. The C1-C2 relationship is anatomic. The dens is intact. Prevertebral soft tissue is normal in appearance. Paraspinal soft tissue is normal in appearance. Lung apices are clear. XR/XR cervical spine 3V IMPRESSION: No acute osseous cervical spine abnormality. Electronically signed by: Wang Moreland DO 01/25/2024 07:51 PM EDT Independent Historian Clinical information obtained from an independent historian. History obtained from or confirmed by: Spouse External Record Review External record reviewed: Inpatient record Prescription Management I considered prescription management with: Pain Medication Social Determinants Patient?s care significantly limited by Social Determinants of Health including: Other Social Determinant of Health Critical Care Time Critical Care Time Critical Care Time: No Discharge Plan Discharge Clinical Impression: Cervical paraspinal muscle spasm, Torticollis Patient Disposition: Home, Self-Care Instructions: Muscle Spasm (ED), Neck Pain (ED) Additional Instructions: You were evaluated in the Emergency Department today for your neck pain. Your evaluation did not show signs of medical conditions requiring emergent intervention at this time. Avoid bending, lifting, or twisting. Use ice several times per day for 20 minutes at a time for the next 48 hours and then change to heat. I recommend you take 600mg ibuprofen every 6 hours or tylenol 650mg every 6 hours as needed for pain. If needed, you can alternate these medications so that you take one medication every 3 hours. For example, at noon take ibuprofen, then at 3pm take tylenol, then at 6pm take ibuprofen. Flexeril is a muscle relaxer. Take this at night as it makes you drowsy. Do not drive, drink alcohol, or operate machinery while taking it. Lidoderm patches are numbing patches. Apply to painful areas. Please schedule an appointment for follow-up with your primary care provider this week for further evaluation of your symptoms. Return to the Emergency Department if you experience worsening back pain, difficulty walking, fevers, numbness, tingling, incontinence, or any other concerning symptoms. In the case of an emergency call 911. Prescriptions: New cyclobenzaprine 5 mg tablet 5 mg PO Q8H Qty: 7 0RF lidocaine [Lidoderm] 5 % adhesive patch,medicated 1 patch topical DAILY Qty: 15 0RF Rx Instructions: leave on most painful area for up to 12 hrs No Action cefuroxime axetil 250 mg tablet 250 mg PO Q12H 7 Days Qty: 14 0RF prednisone 20 mg tablet 40 mg PO DAILY 5 Days Qty: 10 0RF naproxen 500 mg tablet 500 mg PO BID PRN (Reason: pain) 7 Days Qty: 14 0RF dicyclomine 20 mg tablet 20 mg PO QID 30 Days Qty: 120 1RF ferrous sulfate 325 mg (65 mg iron) tablet 325 mg PO DAILY omeprazole 40 mg capsule,delayed release(DR/EC) 40 mg PO DAILY 30 Days Qty: 30 6RF Referrals: Naa Mast, [facility] [Primary Care Provider] - Stand Alone Forms: Work/School Release Print Language: Nigerien
[2024-01-25 19:56] VITALS: BP 103/63; PULSE 78; RESP 20; O2SAT 100
[2024-01-25] MEDS: diazePAM 5 MG TABLET PO (20:01)
[2024-01-25] MEDS: Lidocaine 4 % Patch ADH..PATCH 1 PATCH TRANSDERMA (20:02)
[2024-01-25] MEDS: Ketorolac Tromethamine 30 MG/ML VIAL IM (20:04)
[2024-01-25 20:50] VITALS: BP 103/63; PULSE 78; RESP 20; TEMP 36.9; O2SAT 100
== END 2024-01-25 20:51 | disposition home or self-care (01) ==
PROVIDERS: Emergency Provider Emergency Medicine Emergency Medical Services; PCP Nurse Practitioner Primary Care
DX: M62.838 Other muscle spasm (principal); M43.6 Torticollis
CPT/HCPCS: 72040; 96372; 99283; 99284; J1885

== ENCOUNTER 2024-02-12 11:29 | Outpatient (REF) | payer MEDICAID, SELFPAY ==
[2024-02-12 13:34] LABS: MANUAL DIFF FLAG NO
[2024-02-12 13:44] LABS: Basophils Absolute Auto 0.1 X10*3/uL (0.0-0.2); Basophils Percent Auto 0.7 % (0-2); Eosinophils Percent Auto 0.6 % (0-4); Hematocrit 33.6 % (37.0-47.0); Hemoglobin 10.7 g/dl (12.0-16.0); Imm Gran Abs Auto 0.02 X10*3/uL (0.00-0.03); Imm Gran Pct Auto 0.3 % (0.0-0.4); Lymphocytes Absolute Auto 2.3 X10*3/uL (1.2-4.9); Lymphocytes Percent Auto 32.8 % (20-40); Mean Corpuscular HGB Conc 31.8 g/dl (31.0-35.0); Mean Corpuscular Hemoglobin 25.1 pg (27.0-33.0); Mean Corpuscular Volume 78.7 fL (80.0-98.0); Mean Platelet Volume 11.5 fL (9.4-12.3); Monocytes Absolute Auto 0.4 X10*3/uL (0.1-1.2); Monocytes Percent Auto 5.8 % (2-11); Neutrophils Absolute Auto 4.2 x10*3/uL (2.0-8.3); Neutrophils Percent Auto 59.8 % (45-73); Platelet Count 326 X10*3/uL (160-400); Red Blood Count 4.27 X10*6/uL (4.20-5.50)
[2024-02-12 14:36] LABS: TSH reflex Free T4 0.62 uIU/mL (0.32-4.0)
== END 2024-02-12 11:30 | disposition home or self-care (01) ==
LOC: HO.HHCL 11:29
PROVIDERS: Visit Provider Nurse Practitioner Primary Care
DX: G47.9 Sleep disorder, unspecified (principal); N92.0 Excessive and frequent menstruation with regular cycle
CPT/HCPCS: 36415; 84443; 85025

== ENCOUNTER 2024-02-13 16:37 | Outpatient (REF) | payer MEDICAID, SELFPAY ==
[2024-02-14 09:52] LABS: Adenovirus F 40/41 Not Detected (Not Detect.); Astrovirus Not Detected (Not Detect.); Campylobacter Not Detected (Not Detect.); Cryptosporidium Not Detected (Not Detect.); Cyclospora cayetanensis Not Detected (Not Detect.); E. coli EAEC Not Detected (Not Detect.); E. coli EPEC Not Detected (Not Detect.); E. coli ETEC Not Detected (Not Detect.); E. coli STEC Not Detected (Not Detect.); Entamoeba histolytica Not Detected (Not Detect.); Giardia lamblia Not Detected (Not Detect.); Norovirus GI/GII Not Detected (Not Detect.); Plesiomonas shigelloides Not Detected (Not Detect.); Rotavirus A Not Detected (Not Detect.); Salmonella Not Detected (Not Detect.); Sapovirus Not Detected (Not Detect.); Shigella sp./EIEC Not Detected (Not Detect.); Vibrio Not Detected (Not Detect.); Vibrio Cholerae Not Detected (Not Detect.); Yersinia enterocolitica Not Detected (Not Detect.)
== END 2024-02-13 16:38 | disposition home or self-care (01) ==
LOC: HO.LNP 16:37
PROVIDERS: Visit Provider Nurse Practitioner Primary Care
DX: R19.7 Diarrhea, unspecified (principal)
CPT/HCPCS: 87338; 87507

== ENCOUNTER 2024-05-12 17:27 | Outpatient (REF) | payer MEDICAID, SELFPAY ==
[2024-05-13 11:45] LABS: Bacterial Vaginosis PCR POSITIVE (Negative); Candida Group PCR DETECTED (Not Detect); Candida glab krusei PCR NOT DETECTED (Not Detect); Trichomonas vaginalis PCR NOT DETECTED (Not Detect)
[2024-05-13 14:00] LABS: CT PCR NOT DETECTED (Not Detect.); NG PCR NOT DETECTED (Not Detect.)
== END 2024-05-12 17:28 | disposition home or self-care (01) ==
LOC: HO.HHCLNP 17:27
PROVIDERS: Visit Provider Nurse Practitioner Primary Care
DX: N89.8 Other specified noninflammatory disorders of vagina (principal)
CPT/HCPCS: 0352U; 87491; 87591

== ENCOUNTER 2024-10-04 23:39 | Emergency (ER) | payer MEDICAID, SELFPAY ==
--- NOTE | ~2024-10-04 | XR_ITS ---
CLINICAL HISTORY: pain with inspiration under R. shoulder blade area 2 view chest x-ray. Comparison: None Findings: The lungs appear clear. There is no consolidation, effusion, or pneumothorax. Cardiomediastinal silhouette is within normal limits. IMPRESSION: No acute cardiopulmonary abnormality. This document has been electronically signed by: Martir Ibrahim MD on 10/05/2024 00:42:42
[2024-10-04 23:55] VITALS: BP 113/63; PULSE 70; RESP 16; TEMP 36.6; O2SAT 100; BMI 36.8
--- NOTE | 2024-10-05 02:51 | PC.NURSE ---
Pt a&ox4, no signs of distress Pt ambulates with a steady gait Pt reports upper back pain that feels like lung pain with onset x4 days which feels like stabbing Pts family at bedside Plan of care ongoing.
--- NOTE | 2024-10-05 02:56 | ED.BACK ---
HPI - Back Pain/Injury General Chief Complaint: Back Pain/Injury Stated Complaint: lower right side back pain Time Seen by Provider: 10/05/24 02:48 Source: patient Mode of arrival: ambulatory Limitations: no limitations History of Present Illness ED Provider: HPI Narrative: Patient with no significant medical history comes here with right upper back pain for last 4 days no shortness of breath no leg swelling no history of DVT no cough no fever no chills no recent travel no risk factor for PE Related Data Home Medications ?Medication ?Instructions ?Recorded ?Confirmed ferrous sulfate 325 mg (65 mg 325 mg PO DAILY 09/02/20 iron) tablet Previous Rx's ?Medication ?Instructions ?Recorded dicyclomine 20 mg tablet 20 mg PO QID 30 days #120 tabs 03/12/20 omeprazole 40 mg capsule,delayed 40 mg PO DAILY 30 days #30 caps 03/10/21 release cefuroxime axetil 250 mg tablet 250 mg PO Q12H 7 days #14 tabs 03/05/22 naproxen 500 mg tablet 500 mg PO BID PRN pain 7 days #14 12/17/22 tabs prednisone 20 mg tablet 40 mg (2 x 20 mg) PO DAILY 5 days 12/17/22 #10 tabs cyclobenzaprine 5 mg tablet 5 mg PO Q8H #7 tabs 01/25/24 lidocaine 5 % topical patch 1 patch topical DAILY #15 ea 01/25/24 (Lidoderm) ibuprofen 600 mg tablet 600 mg PO Q6H PRN fever or pain 10/05/24 #30 tabs Allergies Allergy/AdvReac Type Severity Reaction Status Date / Time promethazine [From PHENERGAN] Allergy Unknown RASH Verified 10/04/24 23:57 ENTIRE BODY tramadol [TRAMADOL] Allergy Unknown Rash Verified 10/04/24 23:57 Review of Systems Review of Systems: Yes all other systems are reviewed and are negative PMFSH Past Medical History Medical History IBS (irritable bowel syndrome) Surgical History Hx of eye surgery Hx of tubal ligation Family History Family History Maternal Grandfather No problems noted. Maternal Grandmother Ulcer Family/Other Stomach cancer Breast cancer Mother Asthma Social History Social History Household Members: Significant Other and Children Housing: Apartment Alcohol intake: never Patient Tobacco Use Status: Never used Tobacco Smoked in Last 30 Days: No Use of substances other than those prescribed or required for medical reasons: No Advance Directives: No Do you have a plan to hurt others: No Plan Physical Exam Vital Signs: Vital Signs: Last Vital Signs Temp 98.0 F 10/05/24 05:25 Pulse 82 10/05/24 05:25 Resp 16 10/05/24 05:25 BP 110/68 10/05/24 05:25 Pulse Ox 98 10/05/24 05:25 O2 Del Method Room Air 10/05/24 05:25 BMI result Body Mass Index 36.8 Appearance: Alert. Oriented X3. No acute distress. Eyes: PERRLA, No Nystagmus ENT: Pharynx normal. Oral Mucosa moist Neck: Normal inspection. Neck supple. CVS: Normal heart rate and rhythm. Pulses normal. Respiratory: No respiratory distress. Equal air entry bilateral, no wheezing/rales/rhonchi Abdomen: Soft and nontender. Bowel sounds are present, no mass palpable, no CVA tenderness Skin: Skin warm and dry. Normal skin color. Normal skin turgor. back: Tenderness right scapular area Extremities: No lower extremity edema. No calf tenderness Neuro: Oriented X 3. No motor deficit. No sensory deficit.No cerebellar signs , cranial nerves II-XII intact Medications Administered Discontinued Medications Generic Name Dose Route Start Last Admin Trade Name Berta PRN Reason Stop Dose Admin Ibuprofen 600 mg 10/05/24 03:13 10/05/24 03:25 Ibuprofen 600 Mg Tablet PO 10/05/24 03:14 600 mg ONCE ONE Administration Medical Decision Making Medical Decision Making [facility] Narrative: Patient clinically with muscular pain right scapular area workup negative for acute low risk for PE no shortness a breath no leg swelling no recent travel patient advised to take ibuprofen for pain, report to the ER if any shortness a breath patient responded to ibuprofen in the ER no chest pain at time of discharge Differential Diagnosis Differential Diagnoses: The differential diagnosis associated with the presentation includes pleurisy/pneumothorax/pneumonia/musculoskeletal pain Lab Data [facility] Lab Attestation statement: I reviewed the patient's lab results. 10/05/24 03:33 10/05/24 03:33 Labs: Lab Results 10/05/24 Range/Units 03:33 WBC 8.0 (4.8-10.8) X10*3/uL RBC 4.39 (4.20-5.50) X10*6/uL Hgb 10.6 L (12.0-16.0) g/dl Hct 33.5 L (37.0-47.0) % MCV 76.3 L (80.0-98.0) fL MCH 24.1 L (27.0-33.0) pg MCHC 31.6 (31.0-35.0) g/dl RDW 14.3 (11.0-16.0) % Plt Count 324 (160-400) X10*3/uL MPV 10.5 (9.4-12.3) fL Immature Gran % (Auto) 0.1 (0.0-0.4) % Neut % (Auto) 60.7 (45-73) % Lymph % (Auto) 30.5 (20-40) % Haakon % (Auto) 7.3 (2-11) % Eos % (Auto) 0.9 (0-4) % Baso % (Auto) 0.5 (0-2) % Lymph # (Auto) 2.5 (1.2-4.9) X10*3/uL Haakon # (Auto) 0.6 (0.1-1.2) X10*3/uL Eos # (Auto) 0.1 (0.0-0.4) X10*3/uL Baso # (Auto) 0.0 (0.0-0.2) X10*3/uL Abs Immat Gran (auto) 0.01 (0.00-0.03) X10*3/uL Absolute Neuts (auto) 4.9 (2.0-8.3) x10*3/uL Absolute Nucleated RBC 0.000 (0.0-0.012) X10*3/uL Nucleated RBC % (auto) 0.0 (0.0-0.2) /100WBC D-Dimer High Sensitivty 279 NG/ML Sodium 140 (135-145) mmol/L Potassium 4.1 (3.3-5.1) mmol/L Chloride 106 (96-108) mmol/L Carbon Dioxide 26 (22-29) mmol/L Anion Gap 12 (12-20) BUN 14 (9-16) mg/dL Creatinine 0.79 (0.5-1.4) mg/dL Estim Creat Clear Calc 117.6 Estimated GFR > 60 Random Glucose 103 (60-115) mg/dL Calcium 9.5 (8.4-10.2) mg/dL Total Bilirubin 0.2 (0.0-1.0) mg/dL AST 17 (5-31) U/L ALT 18 (0-31) U/L Alkaline Phosphatase 71 (39-117) U/L Total Protein 7.3 (6.5-8.0) g/dL Albumin 4.0 (3.5-5.0) g/dL Independent Interpretation I performed an independent interpretation of an: Plain X-Ray Radiology Impression Discussion of test interpretation with radiology: I have reviewed the radiologist's reading. Radiologist Impression: NAD Discharge Plan Discharge Clinical Impression: Acute upper back pain Patient Disposition: Home, Self-Care Instructions: Back Pain (ED) Additional Instructions: Your pain is likely musculoskeletal Take ibuprofen for pain Report to the ER/PCP if increased pain/shortness a breath Prescriptions: New ibuprofen 600 mg tablet 600 mg PO Q6H PRN (Reason: fever or pain) Qty: 30 0RF No Action cefuroxime axetil 250 mg tablet 250 mg PO Q12H 7 Days Qty: 14 0RF cyclobenzaprine 5 mg tablet 5 mg PO Q8H Qty: 7 0RF lidocaine [Lidoderm] 5 % adhesive patch,medicated 1 patch topical DAILY Qty: 15 0RF Rx Instructions: leave on most painful area for up to 12 hrs prednisone 20 mg tablet 40 mg PO DAILY 5 Days Qty: 10 0RF naproxen 500 mg tablet 500 mg PO BID PRN (Reason: pain) 7 Days Qty: 14 0RF dicyclomine 20 mg tablet 20 mg PO QID 30 Days Qty: 120 1RF ferrous sulfate 325 mg (65 mg iron) tablet 325 mg PO DAILY omeprazole 40 mg capsule,delayed release(DR/EC) 40 mg PO DAILY 30 Days Qty: 30 6RF Interventions: ED Discharge Assessment Last Done: 10/05/24 05:25 Discharge Date/Time: 10/05/24 05:27 Print Language: Somali
--- NOTE | 2024-10-05 02:59 | PC.NURSE ---
Pt denies pain at this time Pt reports pain is intermittent Plan of care ongoing.
[2024-10-05] MEDS: Ibuprofen 600 MG TABLET PO (03:25)
--- NOTE | 2024-10-05 03:35 | PC.NURSE ---
Pt medicated per [facility] Plan of care ongoing.
[2024-10-05 03:39] LABS: MANUAL DIFF FLAG NO
[2024-10-05 03:40] LABS: Basophils Percent Auto 0.5 % (0-2); Eosinophils Absolute Auto 0.1 X10*3/uL (0.0-0.4); Eosinophils Percent Auto 0.9 % (0-4); Hematocrit 33.5 % (37.0-47.0); Hemoglobin 10.6 g/dl (12.0-16.0); Imm Gran Abs Auto 0.01 X10*3/uL (0.00-0.03); Imm Gran Pct Auto 0.1 % (0.0-0.4); Lymphocytes Absolute Auto 2.5 X10*3/uL (1.2-4.9); Lymphocytes Percent Auto 30.5 % (20-40); Mean Corpuscular HGB Conc 31.6 g/dl (31.0-35.0); Mean Corpuscular Hemoglobin 24.1 pg (27.0-33.0); Mean Corpuscular Volume 76.3 fL (80.0-98.0); Mean Platelet Volume 10.5 fL (9.4-12.3); Monocytes Absolute Auto 0.6 X10*3/uL (0.1-1.2); Monocytes Percent Auto 7.3 % (2-11); Neutrophils Absolute Auto 4.9 x10*3/uL (2.0-8.3); Neutrophils Percent Auto 60.7 % (45-73); Platelet Count 324 X10*3/uL (160-400); Red Blood Count 4.39 X10*6/uL (4.20-5.50); Red Cell Distribution Width 14.3 % (11.0-16.0)
[2024-10-05 03:48] LABS: D Dimer High Sensitivity 279 NG/ML
[2024-10-05 03:53] LABS: Alanine Aminotransferase 18 U/L (0-31); Alkaline Phosphatase 71 U/L (39-117); Anion Gap 12 (12-20); Aspartate Amino Transferase 17 U/L (5-31); Bilirubin Total 0.2 mg/dL (0.0-1.0); Blood Urea Nitrogen 14 mg/dL (9-16); Calcium 9.5 mg/dL (8.4-10.2); Carbon Dioxide 26 mmol/L (22-29); Chloride 106 mmol/L (96-108); Creatinine Clr Calc Pharmacy 117.6; Estimated Glomerular Filt Rate > 60; Glucose Random 103 mg/dL (60-115); Potassium 4.1 mmol/L (3.3-5.1); Sodium 140 mmol/L (135-145); Total Protein 7.3 g/dL (6.5-8.0)
[2024-10-05 05:24] VITALS: BP 110/68; PULSE 82; RESP 16; TEMP 36.7; O2SAT 98
[2024-10-05 05:25] VITALS: BP 110/68; PULSE 82; RESP 16; TEMP 36.7; O2SAT 98
== END 2024-10-05 05:27 | disposition home or self-care (01) ==
PROVIDERS: Emergency Provider Internal Medicine; PCP Nurse Practitioner Primary Care
DX: M54.6 Pain in thoracic spine (principal); M25.511 Pain in right shoulder; R07.1 Chest pain on breathing; Z79.899 Other long term (current) drug therapy
CPT/HCPCS: 36415; 71046; 80053; 85025; 85379; 99283; 99284

== ENCOUNTER → 2024-10-04 23:59 | Outpatient (BNV) | payer MEDICAID, SELFPAY | PROVIDERS: PCP Nurse Practitioner Primary Care; Visit Provider Radiology Diagnostic Radiology | DX: R10.31 Right lower quadrant pain (principal) | CPT/HCPCS: 71046 ==

== ENCOUNTER 2025-01-14 17:35 | Outpatient (REF) | payer MEDICAID, SELFPAY | END 2025-01-14 17:36 | disposition home or self-care (01) | LOC: HO.HHCLNP 17:35 | PROVIDERS: Visit Provider Internal Medicine | DX: N94.9 Unspecified condition associated with female genital organs and menstrual cycle (principal) | CPT/HCPCS: 36415; 87255 ==

== ENCOUNTER 2025-04-21 15:26 | Outpatient (REF) | payer MEDICAID, SELFPAY ==
--- NOTE | ~2025-04-21 | XR_ITS ---
EXAMINATION: XR SHOULDER, LEFT CLINICAL INFORMATION: pain COMPARISON: Pain TECHNIQUE: AP external rotation, Grashey, scapular Y, and axillary views of the left shoulder. FINDINGS: Acromioclavicular and glenohumeral joint space is maintained. No acute fracture or dislocation. 0.9 cm calcification superior to the humeral head, likely representing calcific tendinitis. No suspicious bony lesions. XR/XR shoulder LT min 2V IMPRESSION: No acute osseous findings. 0.9 cm calcification superior to the humeral head, likely reflecting calcific tendinitis. Electronically signed by: Murali Morales MD 04/21/2025 04:22 PM LEONARDO
--- OUTSIDE RECORDS SUMMARY | 2025-04-21 15:20 | XMS_ITS | Encounter Summary ---
Author Organization [employer] Address [address] [place] [address] Care Team Providers Care Core Feeder Name Role Phone Naa Mast Primary Care Provider [phone] Reason for Referral * Consultation (Routine) - Pending Review Specialty Diagnoses / Procedures Referred By Fransico groves Referred To Contact Orthopaedic Surgery Diagnoses Chronic left shoulder pain Right tennis elbow Jen Pacheco MD [address] [place] [address] Phone: tel: fax: Referral ID Status Reason Start Date Expiration Date Visits Requested Visits Authorized [id number] Pending Review Specialty Services Required 04/21/2026 1 1 Encounter Details Date Type Department Care Team ([facility] st Contact Info) Description 04/21/2025 3:20 PM EST Office Visit [facility] [address] [place] [address] Jen Pacheco MD [address] [place] [address] [phone] Chronic left shoulder pain; Right tennis elbow Social History Tobacco Use Types Packs/Day Years Used Date Smoking Tobacco: Never Smokeless Tobacco: Never Alcohol Use Standard Drinks/Week Comments Not Currently 0 (1 standard drink = 0.6 oz pur e alcohol) Depression Answer Date Recorded Patient Health Questionnaire-9 Score 11 02/18/2025 Patient Health Questionnaire-9 Score 11 02/18/2025 Last PHQ-9: Questionnaire Data Not on file 0 02/18/2025 Housing Stability Answer Date Recorded What is your housing situation today? I have prema larsen 02/12/[address] you li ve. Do you have problems with any of the following? None of the above 02/12/2024 Food Insecurity Answer Date Recorded Within the past 12 months, y ou worried that your food would run out before you got money to buy more: Sometimes True 2023 Within the past 12 months,th e food you bought just didn't last and you didn't have enough money to get more: Sometimes True 05/12/2024 Transportation Answer Date Recorded In the past 12 months, has l ack of transportation kept you from medical appts, meetings, work or from getting things needed for daily living? No 02/12/2024 Utilities Answer Date Recorded In the past 12 months, has t he electric, gas, oil or water company threatened to shut off services in your home? Yes 02/12/2024 Depression Answer Date Recorded Patient Health Questionnaire-2 Score 2 02/18/2025 Internet Access Answer Date Recorded Internet Access Q1 Yes 02/12/2024 Internet Access Q2 Not on file 02/12/2024 Comments Unknown Sex and Gender Information Value Date Recorded Sex Assigned at Female 03/27/2022 10:27 AM EDT Legal Sex Female 10:27 AM EDT Gender Identity Female 03/27/2022 10:27 AM EDT Sexual Orientation Straight 03/27/2022 10 :27 AM EDT documented as of this encounter Last Filed Vital Signs Vital Sign Reading Time Taken Comments Blood Pressure 130/68 04/21/2025 3:00 PM EST Pulse 90 04/21/2025 3:00 PM EST Temperature 35.6 C (96 F) 04/21/2025 3:00 PM EST Respiratory Rate 16 04/21/2025 3:00 PM EST Oxygen Saturation 98% 04/21/2025 3:00 PM EST Inhaled Oxygen Concentration - - Weight 102 kg (225 lb 9.6 oz) 04/21/2025 3:00 PM EST Height 165.1 cm (5' 5 ) 04/21/2025 3:00 PM EST Body Mass Index 37.54 04/21/2025 3:00 PM EST documented in this encounter Progress Notes * Jen Johns MD - 04/21/2025 3:20 PM EST Images from the original note were not included. SUBJECTIVE: Abbey Bajwa is a 35 y.o. year old female who presents for acute visit . Patient reports acute on chronic pain on left shoulder located on blade area, reports sometimes burning sensation, she has being diagnose before with muscle spasm Patient today also report pain on right elbow area and tells me her arm is weak and is not able to lift heavy objects Social History Social History Narrative Not on file Problem List[1] Family History[2] Review of Systems Constitutional: Negative. HENT: Negative. Respiratory: Negative. Cardiovascular: Negative. Musculoskeletal: Positive for arthralgias and myalgias. OBJECTIVE: Vitals: 04/21/25 1500 BP: 130/68 BP Location: Left arm Patient Position: Sitting BP Cuff Size: Large adult Pulse: 90 Resp: 16 Temp: 96 ??F (35.6 ??C) TempSrc: Temporal SpO2: 98% Weight: 225 lb 9.6 oz (102 kg) Height: 5' 5 (1.651 m) Physical Exam Constitutional: Appearance: Normal appearance. Cardiovascular: Rate and Rhythm: Normal rate and regular rhythm. Pulmonary: Effort: Pulmonary effort is normal. Breath sounds: Normal breath sounds. Abdominal: General: Abdomen is flat. Palpations: Abdomen is soft. Musculoskeletal: Right elbow: Tenderness present. Arms: Comments: Tenderness Neurological: Mental Status: She is alert. Follow Up: No follow-ups on file. Medications Ordered Prior to Encounter[3] Problem List Items Addressed This Visit Chronic left shoulder pain Relevant Medications ibuprofen 800 MG tablet cyclobenzaprine (Flexeril) 10 MG tablet Other Relevant Orders XR Shoulder 2+ Views Left Referral to Orthopaedic Surgery Right tennis elbow Relevant Medications ibuprofen 800 MG tablet Other Relevant Orders Referral to Orthopaedic Surgery [1] Patient Active Problem List Diagnosis Genital lesion, female Chronic left shoulder pain Right tennis elbow [2] No family history on file. [3] Current Outpatient Medications on File Prior to Visit Medication Sig Dispense Refill Fluocinolone Acetonide Scalp 0.01 % oil Apply to scalp 3x/wk. Leave on for 4-8 hours, then rinse out 118 mL 1 ketoconazole (NIZOral) 2 % shampoo Use as shampoo every other day 240 mL 3 Nirmatrelvir&Ritonavir 300/100 (Paxlovid, 300/100,) 20 x 150 MG & 10 x 100MG tablet therapypack Take 1 Dose by mouth 2 times daily. 10 each 0 omeprazole (PriLOSEC) [address] capsule TAKE 1 CAPSULE BY MOUTH EVERY DAY. DO NOT BREAK, CRUSH, DISSOLVE OR CHEW. 90 capsule 1 No current facility-administered medications on file prior to visit. documented in this encounter Plan of Treatment Scheduled Referrals Name Type Priority Associated Diagnoses Order Schedule Referral to Orthopaedic Surgery Outpatient Referral Routine Chronic left shoulder pain Right tennis elbow Expected: 04/21/2025 (Approximate), Expires: 04/21/2026 documented as of this encounter Procedures Procedure Name Priority Date/Time Associated Diagnosis Comments XR SHOULDER 2+ VIEWS LEFT Routine 04/21/2025 3:30 PM EST Chronic left shoulder pain documented in this encounter Results * XR Shoulder 2+ Views Left (04/21/2025 3:30 PM EST) Anatomical Region Laterality Modality Upper Extremities, Shoulder Left Radi ographic Imaging 04/21/2025 3:30 PM EST Narrative 04/21/2025 4:25 PM EST [address] [address] XRay Report Signed Patient: Abbey Zhu MR#: [id number] : 1990 Acct:[id number] Age/Sex: 35 / F ADM Date: 04/21/25 Loc: HO.HHCX Attending Dr: Jen Johns MD Ordering Physician: Jen Pacheco MD Date of Service: 04/21/25 Procedure(s): XR shoulder LT min 2V Accession Number(s): [id number] cc: Jen Pacheco MD Reason for Exam: pain EXAMINATION: XR SHOULDER, LEFT CLINICAL INFORMATION: pain COMPARISON: Pain TECHNIQUE: AP external rotation, Grashey, scapular Y, and axillary views of the left shoulder. FINDINGS: Acromioclavicular and glenohumeral joint space is maintained. No acute fracture or dislocation. 0.9 cm calcification superior to the humeral head, likely representing calcific tendinitis. No suspicious bony lesions. XR/XR shoulder LT min 2V IMPRESSION: No acute osseous findings. 0.9 cm calcification superior to the humeral head, likely reflecting calcific tendinitis. Electronically signed by: Murali Morales MD 04/21/2025 04:22 PM EST RP Dictated By: Murali Morales MD Signed By: <Electronically signed by Murali Morales MD in OV> 04/21/25 1622 DD/ 1530 TD/TT: 04/21/25 1539 Graining Machine Operator: ROLANDO Procedure Note Donotuseinterpreter, Image - 04/21/[address] [address] XRay Report Signed Patient: Abbey ZhuMR#: [id number] : 1990Acct:[id number] Age/Sex: 35 / FADM Date: 04/21/25 Loc: HO.HHCX Attending Dr: Jen Johns MD Ordering Physician: Jen Pacheco MD Date of Service: 04/21/25 Procedure(s): XR shoulder LT min 2V Accession Number(s): [id number] cc: Jen Pacheco MD Reason for Exam: pain EXAMINATION: XR SHOULDER, LEFT CLINICAL INFORMATION: pain COMPARISON: Pain TECHNIQUE: AP external rotation, Grashey, scapular Y, and axillary views of the left shoulder. FINDINGS: Acromioclavicular and glenohumeral joint space is maintained. No acute fracture or dislocation. 0.9 cm calcification superior to the humeral head, likely representing calcific tendinitis. No suspicious bony lesions. XR/XR shoulder LT min 2V IMPRESSION: No acute osseous findings. 0.9 cm calcification superior to the humeral head, likely reflecting calcific tendinitis. Electronically signed by: Murali Morales MD 04/21/2025 04:22 PM EST RP Dictated By: Murali Morales MD Signed By: <Electronically signed by Murali Morales MD in OV> 04/21/25 1622 DD/ 1530 TD/TT: 04/21/25 1539 Graining Machine Operator: ROLANDO Jen Johns MD IMG XR PROCEDURES Fin al Result documented in this encounter Visit Diagnoses Diagnosis Chronic left shoulder pain Pain in joint, shoulder region Right tennis elbow documented in this encounter Additional Health Concerns Assessment Noted Time PHQ-9 Depression Total Score: 025 2:07 PM EDT documented as of this encounter Care Teams Core Feeder Relationship Specialty Start Date End Date Naa Mast ANP [address] [place] [address] PCP - General Family Medicine 11/11/19 documented as of this encounter
--- OUTSIDE RECORDS SUMMARY | 2025-04-21 19:02 | XMS_ITS | Clinical Summary ---
Author Organization [employer] Address [address] [facility] [address] [place] [address] Care Team Providers Care [employer] Teacher Name Role Phone Naa Mast Primary Care Provider [phone] Allergies Active Allergy Reactions Criticality Noted Date Comments Promethazine Rash Low 08/23/2016 Tramadol Rash Low 08/23/2016 Medications * This document contains information received from the source organization and may not represent a complete record from that organization. ketoconazole (NIZOral) 2 % shampooIndicatio ns:Seborrheic dermatitis Use as shampoo every other day 240 mL 3 4 Active Fluocinolone Acetonide Scalp 0.01 % oilIndications:S eborrheic dermatitis Apply to scalp 3x/wk. Leave on for 4-8 hours, then rinse out 118 mL 1 4 Active Nirmatrelvir&Rit onavir 300/100 (Paxlovid, 300/100,) 20 x 150 MG & 10 x 100MG tablet therapy packIndications: COVID-19 Take 1 Dose by mouth 2 times daily. 10 each 5 Active omeprazole (PriLOSEC) [address] capsuleIndicatio ns:Nausea,Gastro esophageal reflux disease without esophagitis TAKE 1 CAPSULE BY MOUTH EVERY DAY. DO NOT BREAK, CRUSH, DISSOLVE OR CHEW. 90 capsule 1 5 Active ibuprofen 800 MG tabletIndication s:Chronic left shoulder pain,Right tennis elbow Take 1 tablet (800 mg) by mouth every 8 (eight) hours if needed for moderate pain for up to 10 days. 30 tablet 04/21/2025 3:51 PM EST 5 05/01/20 25 Active cyclobenzaprine (Flexeril) 10 MG tabletIndication s:Chronic left shoulder pain Take 1 tablet (10 mg) by mouth 3 times daily. 30 tablet 04/21/2025 3:51 PM EST 05/01/20 Active Active Problems Problem Noted Date Diagnosed Date Chronic left shoulder pain 04/21/2025 Right tennis elbow 04/21/2025 Genital lesion, female 01/14/2025 Assessment & Plan (01/14/2025 2:50 PM EDT): Counseling done Sample taken Patient will be contacted with results Resolved Problems Problem Noted Date Diagnosed Date Resolved Date COVID-19 11/07/2024 02/18/2025 Assessment & Plan (11/07/2024 4:45 PM EDT): I advised to drink plenty of fluids and rest Paxlovid prescribed today She may take acetaminophen as needed Upper respiratory disease 05/12/2023 Assessment & Plan (05/12/2023 7:44 PM EST): Pt with likely viral symptoms Covid ,flu ,strep neg today -supportive tx px today -Alarm signs and ymptoms -Hydration Encounters * This document contains information received from the source organization and may not represent a complete record from that organization. Date Type Department Care Team Description 04/21/2025 3:20 PM EST Office Visit [facility] [address] [place] [address] eJn Pacheco MD Chronic left shoulder pain; Right tennis elbow 04/21/2025 Travel 03/10/2025 Telephone [facility] [employer] [address] [place] [address] Naa Mast ANP MAMMO ORDER 02/20/2025 Telephone [facility] [address] [place] [address] Naa Mast ANP Appointment Request 02/18/2025 2:00 PM EDT Office Visit [facility] [address] [place] [address] Naa Mast ANP Healthcare maintenance (Primary Dx); Encounter for immunization; Family history of breast cancer; Sleep disturbance; Stress; Anxiety 02/18/2025 Travel 2025 Telephone [facility] [address] [place] [address] Naa Mast ANP chart prep 02/11/2025 Patient Outreach [facility] [address] [place] [address] Naa Mast ANP Pre-visit Planning ([facility] unable to reach [facility] ) 01/20/2025 Orders Only [facility] [address] [place] [address] Aixa Holley RN 01/19/2025 Results Follow-Up [facility] [address] [place] [address] Jen Pacheco MD Herpes Simplex Virus Culture with Reflex Typing from Last 3 Months Immunizations Immunization Administration Dates Next Due Influenza injectable quadriv alent IIV4 with preservative 06/18/2017,04/29/2015 Influenza, seasonal, injectable, preservative fr ee 02/18/2025,02/12/2024 Pfizer Covid-19 Vaccine 12+ Bivalent 11/22/2022 Td (adult), 5 Lf tetanus tox oid, preservative free, adsorbed 08/26/2015 Tdap 02/18/2025 Social History Tobacco Use Types Packs/Day Years Used Date Smoking Tobacco: Never Smokeless Tobacco: Never Tobacco Cessation:Counseling Given: Not Answered Alcohol Use Standard Drinks/Week Comments Not Currently 0 (1 standard drink = 0.6 oz pur e alcohol) Depression Answer Date Recorded Patient Health Questionnaire-9 Score 11 02/18/2025 Patient Health Questionnaire-9 Score 11 02/18/2025 Last PHQ-9: Questionnaire Data Not on file 0 02/18/2025 Housing Stability Answer Date Recorded What is your housing situation today? I have prema suzie 02/12/[address] you li [...] Orientation Straight 03/27/2022 10 :27 AM EDT Last Filed Vital Signs Vital Sign Reading [...] Mass Index 37.54 04/21/2025 3:00 PM EST Plan of Treatment Health Maintenance Due Date Last Done Comments Family Planning (PISQ) 2005 HPV Vaccines (1 - 3-dose series) 2005 COVID-19 Vaccine ( season) 2025 11/22/2022, 12/15/2020, 11/25/2020 Alcohol/Substance Use Screening 05/12/2025 05/12/2024 SDOH Screening 05/12/2025 05/12/2024 Depression Monitoring 08/18/2025 02/18/2025, 025 Cervical Cancer Screening 09/10/2025 HPV/Cotest 09/10/2025 09/10/2020 Pap Smear 09/10/2025 09/10/2020 Disability Screening 02/18/2026 02/18/2025 Tobacco Screening 02/18/2026 02/18/2025 DTaP/Tdap/Td Vaccines (2 - Td or Tdap) 02/18/2035 02/18/2025, 08/26/2015 Zoster Vaccines (1 of 2) 02/18/2040 RSV Patients and Patients Aged 60 years or older (1 - 1-dose 75+ series) 2065 HIV Screening Completed 01/14/2025, 12/22/2022 Hepatitis C Screening Completed 01/14/2025, 023 Influenza Vaccine Completed 02/18/2025, , 06/18/2017, Additional history exists HIB Vaccines Aged Out No longer eligi ble based on patient's age to complete this topic Hepatitis A Vaccines Aged Out No long er eligible based on patient's age to complete this topic Hepatitis B Vaccines Discontinued IPV Vaccines Aged Out No longer eligi ble based on patient's age to complete this topic Meningococcal B Vaccine Aged Out No l onger eligible based on patient's age to complete this topic Meningococcal Vaccine Aged Out No demetrius ann eligible based on patient's age to complete this topic Pneumococcal Vaccine: Pediatrics (0 to 5 Years) and At-Risk Patients (6 to 49) Years Aged Out No longer eligible based on patient's age to complete this topic RSV under 20 months Aged Out No longe r eligible based on patient's age to complete this topic Rotavirus Vaccines Aged Out No longer eligible based on patient's age to complete this topic Procedures Procedure Name Priority Date/Time Associated Diagnosis Comments XR SHOULDER 2+ VIEWS LEFT Routine 04/21/2025 3:30 PM EST Chronic left shoulder pain HEPATITIS C ANTIBODY ([place] [facility]) Routine 01/14/2025 HIV ANTIBODY/ANTIGEN ([place] [facility]) Routine 01/14/2025 THINPREP PAP AND HPV MRNA E6/E7 Routine 09/10/2020 2:44 PM EDT from Last 3 Months or Most Recently Relevant to Health Maintenance Results * XR Shoulder 2+ Views Left (04/21/2025 3:30 PM EST) Anatomical Region Laterality Modality Upper Extremities, Shoulder Left Radi ographic Imaging 04/21/2025 3:30 PM EST Narrative 04/21/2025 4:25 PM EST [address] [address] XRay Report Signed Patient: Abbey Zhu MR#: [id number] : 1990 Acct:[id number] Age/Sex: 35 / F ADM Date: 04/21/25 Loc: HO.HHCX Attending Dr: Jen Johns MD Ordering Physician: Jen Pacheco MD Date of Service: 04/21/25 Procedure(s): XR shoulder LT min 2V Accession Number(s): [id number] cc: Jen Pacheco MD Reason for Exam: [...] Murali Morales MD 04/21/2025 04:22 PM EST Dictated By: Murali Morales MD Signed By: <Electronically signed by Murali Morales MD in OV> 04/21/25 1622 DD/ 1530 TD/TT: 04/21/25 1539 Wire Inserter: ROLANDO Procedure Note Donotuseinterpreter, Image - 04/21/[address] [address] XRay Report Signed Patient: Abbey Zhu#: [id number] : 1990Acct:[id number] Age/Sex: 35 / FADM Date: 04/21/25 Loc: HO.HHCX Attending Dr: Jen Johns MD Ordering Physician: Jen Pacheco MD Date of Service: 04/21/25 Procedure(s): XR shoulder LT min 2V Accession Number(s): [id number] cc: Jen Pacheco MD Reason for Exam: [...] Murali Morales MD 04/21/2025 04:22 PM EST Dictated By: Murali Morales MD Signed By: <Electronically signed by Murali Morales MD in OV> 04/21/25 1622 DD/ 1530 TD/TT: 04/21/25 1539 Wire Inserter: HB Jen Johns MD IMG XR PROCEDURES Fin al Result * Hepatitis C Antibody (LYNN DESAI) (01/14/2025) Hepatitis C Ab Nonreactive Blood 01/14/2025 us Historical Provider LAB BLOOD ORDERABLES Monika l Result * HIV Ab/Ag (LYNN DESAI) (01/14/2025) HIV Ag/Ab Nonreactive Blood 01/14/2025 us Historical Provider LAB BLOOD ORDERABLES Monika dinero Result * THINPREP PAP AND HPV mRNA E6/E7 (09/10/2020 2:44 PM EDT) Clinical Information: None given [facility] COMMENT SEE COMMENT [facility] Comment: EXPLANATORY NOTE: The Pap is a screening test for cervical cancer. It is not a diagnostic test and is subject to false negative and false positive results. It is most reliable when a satisfactory sample, regularly obtained, is submitted with relevant clinical findings and history, and when the Pap result is evaluated along with historic and current clinical information. Environmental Services Manager: SEE COMMENT [facility] Comment: KVNG JOHNSON(ASCP) CT screening location: [place] [address] HPV nRNA E6/E7 Not Detected Not Detected [facility] Comment: Methodology: Telecommunications Manager-Mediated Amplification This assay detects E6/E7 viral messenger RNA (mRNA) from 14 high-risk HPV types (16,18,31,33,35,39,45,51,52,56,58,59,66,68). The analytical performance characteristics of this assay have been determined by [facility]. The modifications have not been cleared or approved by the FDA. This assay has been validated pursuant to the CLIA regulations and is used for clinical purposes. For additional information, please refer to http://education.MovableInk.SageFire/faq/FMG858p9 (This link if provided for information/ educational purposes only.) NO COLLECTION DATE RECEIVED. WE HAVE USED THE DATE THE SPECIMEN WAS RECEIVED BY THIS LABORATORY THE COLLECTION DATE. IF THIS IS INCORRECT, PLEASE CONTACT CLIENT SERVICES. PHONE NUMBER: Infection Shift in vaginal nic suggestive of bacterial vaginosis. [facility] Interpretation/Re sult: Negative for intraepithelial lesion or malignancy. [facility] LMP: NONE [facility]IV[facility] Prev. BX: NONE [facility]IV[facility] Prev. PAP: NONE [facility]IVEN [facility] SOURCE: None given [facility] Statement Of Adequacy: SEE COMMENT [facility] Comment: Satisfactory for evaluation. Endocervical/transformation zone component absent. Age and/or menstrual status not provided 09/10/2020 2:44 PM EDT us Naa ACEVEDO LAB PATHOLOGY ORDERABLES Final R esult [facility] [address] [place] [address], from Last 3 Months or Most Recently Relevant to Health Maintenance Insurance [employer] Care Teams [employer] Teacher Relationship Specialty Start Date End Date Naa Mast ANP [address] [place], [place] PCP - General Family Medicine 11/11/19
--- OUTSIDE RECORDS SUMMARY | 2025-04-21 19:02 | XMS_ITS | Encounter Summary ---
Author Organization [employer] Address [address] [facility] 7t [place] [address] Care Team Providers Care Oracle Database Analyst Name Role Phone Naa Mast Primary Care Provider [phone] Bill Albarado RN Unavailable [phone] Laura Du Unavailable Encounter Details Date Type Department Care Team (Latest Contact Info) Description 04/04/2019 Abstract [facility] CONVERSIONS Dental, Provider, DDS Social History Tobacco Use Types Packs/Day Years Used Date Smoking Tobacco: Never Assessed Comments Unknown Sex and Gender Information Value Date Recorded Sex Assigned at Female 03/27/2022 10:27 AM EDT Legal Sex Female 10:27 AM EDT Gender Identity Female 03/27/2022 10:27 AM EDT Sexual Orientation Straight 03/27/2022 10 :27 AM EDT documented as of this encounter Plan of Treatment Not on file documented as of this encounter Visit Diagnoses Not on filedocumented in this encounter Care Teams Oracle Database Analyst Relationship Specialty Start Date End Date Naa Mast ANP [address] [place] [address] PCP - General Family Medicine 11/11/19 Bill Albarado, RN [address] [place] [address] Registered Nurse Family Medicine 10/06/24 11/24/24 Laura Du 10/06/24 11/24/24 documented as of this encounter
--- OUTSIDE RECORDS SUMMARY | 2025-04-21 19:02 | XMS_ITS | Encounter Summary ---
Author Organization [employer] Address [address] [place] [address] Care Team Providers Care Product Architect Name Role Phone Naa Mast Primary Care Provider [phone] Encounter Details Date Type Department Care Team (Latest Contact Info) Description 04/21/2025 Travel Social History Tobacco Use Types Packs/Day Years [...] Diagnoses Not on filedocumented in this encounter Additional Health Concerns Assessment Noted Time PHQ-9 Depression Total Score: 11 025 2:07 PM EDT documented as of this encounter Care Teams Product Architect Relationship Specialty Start Date End Date Naa Mast ANP [address] [place] [address] PCP - General Family Medicine 11/11/19 documented as of this encounter
== END 2025-04-21 15:27 | disposition home or self-care (01) ==
LOC: HO.HHCX 15:26
PROVIDERS: Visit Provider Internal Medicine
DX: M25.512 Pain in left shoulder (principal); G89.29 Other chronic pain
CPT/HCPCS: 73030

== ENCOUNTER → 2025-04-21 15:26 | Outpatient (BNV) | payer MEDICAID, SELFPAY | PROVIDERS: Visit Provider Radiology Diagnostic Ultrasound | DX: M75.32 Calcific tendinitis of left shoulder (principal) | CPT/HCPCS: 73030 ==